=== PATIENT | female | born 1980 ===

== ENCOUNTER 2017-10-04 09:02 | Inpatient (IN) | payer OTHER ==
[2017-10-04 09:10] VITALS: BMI 28.9
--- NOTE | 2017-10-04 09:32 | C.PDOC ---
History Of Present Illness Patient is a 37 y/o female who presents to the ED with a complaint of left hand and forearm pain for the last 3 days. Patient notes the pain worsens at night and has been treating with heating pads and Icy Hot massages. Admits to owning a cat at home, but does not recall any injury to left hand. No other physical complaints at this time. Time Seen by Provider: 10/04/17 09:25 Chief Complaint (Nursing): Upper Extremity Problem/Injury History Per: Patient History/Exam Limitations: no limitations Onset/Duration Of Symptoms: Days (3) Current Symptoms Are (Timing): Still Present Quality: "Pain" Exacerbating Factor(s): Worse At Night Recent travel outside of the [place]: No Past Medical History Reviewed: Historical Data, Nursing Documentation, Vital Signs Vital Signs: Last Vital Signs Temp 98.4 F 10/04/17 15:39 Pulse 98 H 10/04/17 15:39 Resp 20 10/04/17 15:39 BP 121/69 10/04/17 15:39 Pulse Ox 100 10/04/17 15:39 - Medical History PMH: Anxiety, Asthma, Colonic Polyps, Gastritis, HTN, Hypercholesterolemia Denies: HIV, Chronic Kidney Disease Surgical History: Appendectomy, Tonsillectomy, (x 3) - [facility] Procedures CLOSED ENDOSCOPIC BIOPSY OF LARGE INTESTINE (05/30/14) ESOPHAGOGASTRODUODENOSCOPY [EGD] W/CLOSED BIOPSY (12/11/13) EXCISION OF RIGHT UPPER LEG SKIN, EXTERNAL APPROACH, DIAGN (09/12/15) INJECT/INFUSE NEC (01/26/15) LAPAROSCOP LYSIS-PERITONEAL ADHES (10/14/14) LAPAROTOMY NEC (03/08/13) NEBULIZER THERAPY (02/03/14) OTH LYSIS-PERITONEAL ADHES (03/08/13) RESECTION OF APPENDIX, PERCUTANEOUS ENDOSCOPIC APPROACH (07/08/16) Family History: States: No Known Family Hx - Social History Hx Tobacco Use: Yes (light smoker) Hx Alcohol Use: Yes Hx Substance Use: No - Immunization History Hx Tetanus Toxoid Vaccination: No Hx Influenza Vaccination: No Hx Pneumococcal Vaccination: No Review Of Systems Musculoskeletal: Positive for: Arm Pain (left forearm), Hand Pain (left hand ) Physical Exam - Physical Exam Appears: Well, Non-toxic, No Acute Distress Skin: Normal Color, Warm, Dry, Other (questionable lymphangetic spread to left forearm) Head: Atraumatic, Normacephalic Oral Mucosa: Moist Chest: Symmetrical Cardiovascular: Rhythm Regular, No Murmur Respiratory: Normal Breath Sounds, No Rales, No Rhonchi, No Wheezing Gastrointestinal/Abdominal: Soft, No Tenderness Extremity: Swelling (edema to distal left forearm and dorsum of left hand) Pulses: Left Radial: Normal, Right Radial: Normal Neurological/Psych: Oriented x3, Normal Speech, Normal Cognition, Normal Motor, Normal Sensation ED Course And Treatment - Laboratory Results Result Diagrams: 10/04/17 09:41 10/04/17 09:41 Lab Interpretation: Normal (ua neg, tox neg) ECG Rhythm: Sinus Rhythm Rate From EC (bpm) O2 Sat by Pulse Oximetry: 99 (room air) Pulse Ox Interpretation: Normal - Other Rad L hand, L forearm X-Ray: Interpreted by Me (no FB/gas) Progress Note: toradol, morphine 4 IV, morphine 6 iv, Doxycycline IV Reevaluation Time: 11:05 Reassessment Condition: Improved - Physician Consult Information Outcome Of Conversation: 1100: d/w Hospitalist- Dr. Mau Louis, ok to admit. 1200: pt's insurance status resolved, so d/w Dr. Allen Louis- [employer], ok to admit. Medical Decision Making Medical Decision Making: ? cat bite with lymphangitis as noted on dorsal forearm, though no wounds on L hand. and/or Worstening edema/swelling due to massage/heat therapies/Icy Hot applications overnight. EKG, blood work, left forearm XR, left hand XR ordered. Morphine and toradol administered. Disposition Doctor Will See Patient In The: Hospital Counseled Patient/Family Regarding: Studies Performed, Diagnosis - Disposition Disposition: HOSPITALIZED Disposition Time: 11:02 Condition: GOOD - Clinical Impression Clinical Impression: Pain and swelling of left upper extremity - Scribe Statement The provider has reviewed the documentation as recorded by the Scribe Vidya Fowler All medical record entries made by the Scribe were at my direction and personally dictated by me. I have reviewed the chart and agree that the record accurately reflects my personal performance of the history, physical exam, medical decision making, and the department course for this patient. I have also personally directed, reviewed, and agree with the discharge instructions and disposition.
[2017-10-04] MEDS ORDERED: Morphine 4 MG/ML VIAL ONE ×2 (09:46→10:32)
[2017-10-04 09:52] LABS: BASO # 0.1 K/uL (0.0-0.2); BASO % 0.8 % (0.0-2.0); EOS # 0.3 K/uL (0.0-0.7); EOS % 2.4 % (0.0-4.0); HEMOGLOBIN 15.2 g/dL (11.0-16.0); LYMPH # 2.9 K/uL (1.0-4.3); MEAN CELL VOLUME 87.4 fL (81.0-99.0); MEAN CORPUSCULAR HEMOGLOBIN 29.9 pg (27.0-31.0); MEAN CORPUSCULAR HGB CONC 34.2 g/dL (33.0-37.0); MEAN PLATELET VOLUME 8.3 fL (7.2-11.7); MONO # 0.7 K/uL (0.0-0.8); MONO % 6.2 % (0.0-10.0); NEUT # 6.7 K/uL (1.8-7.0); NEUT % 63.6 % (50.0-75.0); NRBC % 0.2 % (0.0-2.0); RBC 5.08 Mil/uL (3.80-5.20); RED CELL DISTRIBUTION WIDTH 13.6 % (11.5-14.5); WHITE BLOOD COUNT 10.6 K/uL (4.8-10.8)
[2017-10-04 10:06] LABS: ALB/GLOB RATIO 1.4 (1.0-2.1); ALBUMIN 4.6 g/dL (3.5-5.0); ALT/SGPT 29 U/L (9-52); AST/SGOT 29 U/L (14-36); BLOOD UREA NITROGEN 14 mg/dL (7-17); CALCIUM 9.1 mg/dl (8.6-10.4); GFR AFRICAN-AMERICAN > 60; GFR NON-AFRICAN AMERICAN > 60
[2017-10-04 10:16] LABS: SQUAMOUS EPITHIAL 7 /hpf (0-5); URINE BILIRUBIN NEGATIVE (NEGATIVE); URINE BLOOD NEGATIVE (NEGATIVE); URINE CLARITY Hazy (Clear); URINE COLOR Yellow (YELLOW); URINE GLUCOSE (UA) NORMAL (Normal); URINE LEUKOCYTE ESTERASE NEG Leu/uL (Negative); URINE PROTEIN NEGATIVE (NEGATIVE); URINE UROBILINOGEN NORMAL mg/dL (0.2-1.0)
[2017-10-04 10:41] LABS: BARBITURATES, UR NEGATIVE (NEGATIVE); BENZODIAZEPINES, UR NEGATIVE (NEGATIVE); OPIATES, UR NEGATIVE (NEGATIVE); PHENCYCLIDINE, UR NEGATIVE (NEGATIVE)
--- NOTE | 2017-10-04 11:36 | RAD ---
PROCEDURE: Left Hand Radiographs. HISTORY: L hand pain , ? cat bite to dosrum, ? FB/gas COMPARISON: None available. FINDINGS: BONES: Patient's ring obscures evaluation of the proximal 4th phalanx. No acute displaced fracture. JOINTS: No dislocation. SOFT TISSUES: Soft tissue swelling. No evidence of radiopaque foreign body. OTHER FINDINGS: None. IMPRESSION: Mild soft tissue swelling.
--- NOTE | 2017-10-04 11:37 | RAD ---
PROCEDURE: Radiographs of the left elbow. HISTORY: L hand/forearm pain/swelling, ? gas COMPARISON: None available. FINDINGS: BONES: No acute displaced fracture. JOINTS: No dislocation. SOFT TISSUES: Mild soft tissue swelling. No evidence of radiopaque foreign body. JOINT EFFUSION: No significant joint effusion. OTHER FINDINGS: None IMPRESSION: Mild soft tissue swelling.
[2017-10-04 15:40] VITALS: RESP 20
--- NOTE | 2017-10-04 17:39 | CP.PCM.HP ---
Past Patient History - Infectious Disease Hx of Infectious Diseases: None - Past Medical History & Family History Past Medical History?: Yes - Past Social History Smoking Status: Light Smoker < 10 Cigarettes Daily - CARDIAC Hx Hypercholesterolemia: Yes Hx Hypertension: Yes - PULMONARY Hx Asthma: Yes - NEUROLOGICAL Hx Neurological Disorder: No - HEENT Hx HEENT Problems: Yes Other/Comment: wears corrective lenses for reading - RENAL Hx Chronic Kidney Disease: No - ENDOCRINE/METABOLIC Hx Endocrine Disorders: No - HEMATOLOGICAL/ONCOLOGICAL Hx Human Immunodeficiency Virus (HIV): No - INTEGUMENTARY Hx Dermatological Problems: No - MUSCULOSKELETAL/RHEUMATOLOGICAL Hx Musculoskeletal Disorders: No Hx Falls: No - GASTROINTESTINAL Hx Gastritis: Yes - GENITOURINARY/GYNECOLOGICAL Hx Genitourinary Disorders: No - PSYCHIATRIC Hx Anxiety: Yes Hx Substance Use: No - SURGICAL HISTORY Hx Appendectomy: Yes Hx Tonsillectomy: Yes - ANESTHESIA Hx Anesthesia: Yes Hx Anesthesia Reactions: No Hx Malignant Hyperthermia: No Meds Allergies/Adverse Reactions: Allergies Allergy/AdvReac Type Severity Reaction Status Date / Time Penicillins Allergy Mild RASH Verified 10/04/17 09:09 iodine AdvReac Mild RASH Verified 10/04/17 09:09 Physical Exam - Constitutional Appears: Well - Head Exam Head Exam: ATRAUMATIC, NORMAL INSPECTION, NORMOCEPHALIC - Eye Exam Eye Exam: EOMI, Normal appearance, PERRL Pupil Exam: NORMAL ACCOMODATION, PERRL - ENT Exam ENT Exam: Mucous Membranes Moist, Normal Exam - Neck Exam Neck exam: Positive for: Normal Inspection - Respiratory Exam Respiratory Exam: Decreased Breath Sounds - Cardiovascular Exam Cardiovascular Exam: REGULAR RHYTHM, +S1, +S2 - GI/Abdominal Exam GI & Abdominal Exam: Diminished Bowel Sounds, Soft - Rectal Exam Rectal Exam: Deferred Results - Vital Signs Recent Vital Signs: Last Vital Signs Temp 98.4 F 10/04/17 15:39 Pulse 98 H 10/04/17 15:39 Resp 20 10/04/17 15:39 BP 121/69 10/04/17 15:39 Pulse Ox 99 10/04/17 16:13 - Labs Result Diagrams: 10/04/17 09:41 10/04/17 09:41 Labs: Laboratory Results - last 24 hr 10/04/17 10/04/17 10/04/17 09:33 09:33 09:41 WBC 10.6 RBC 5.08 Hgb 15.2 Hct 44.4 MCV 87.4 MCH 29.9 MCHC 34.2 RDW 13.6 Plt Count 294 MPV 8.3 Neut % (Auto) 63.6 Lymph % (Auto) 27.0 [place] % (Auto) 6.2 Eos % (Auto) 2.4 Baso % (Auto) 0.8 Neut # (Auto) 6.7 Lymph # (Auto) 2.9 [place] # (Auto) 0.7 Eos # (Auto) 0.3 Baso # (Auto) 0.1 Sodium Potassium Chloride Carbon Dioxide Anion Gap BUN Creatinine Est GFR ( Amer) Est GFR (Non-Af Amer) Random Glucose Calcium Total Bilirubin AST ALT Alkaline Phosphatase Total Protein Albumin Globulin Albumin/Globulin Ratio Urine Color Yellow Urine Clarity Hazy Urine pH 5.0 Ur Specific [place] 1.021 Urine Protein Negative Urine Glucose (UA) Normal Urine Ketones Negative Urine Blood Negative Urine Nitrate Negative Urine Bilirubin Negative Urine Urobilinogen Normal Ur Leukocyte Esterase Neg Urine WBC (Auto) 1 Urine RBC (Auto) 2 Ur Squamous Epith Cells 7 H Urine HCG, Qual Urine Opiates Screen Negative Urine Methadone Screen Negative Ur Barbiturates Screen Negative Ur Phencyclidine Scrn Negative Ur Amphetamines Screen Negative U Benzodiazepines Scrn Negative U Oth Cocaine Metabols Negative U Cannabinoids Screen Negative 10/04/17 10/04/17 09:41 13:30 WBC RBC Hgb Hct MCV MCH MCHC RDW Plt Count MPV Neut % (Auto) Lymph % (Auto) [place] % (Auto) Eos % (Auto) Baso % (Auto) Neut # (Auto) Lymph # (Auto) [place] # (Auto) Eos # (Auto) Baso # (Auto) Sodium 142 Potassium 4.8 Chloride 102 Carbon Dioxide 25 Anion Gap 20 BUN 14 Creatinine 1.0 Est GFR ( Amer) > 60 Est GFR (Non-Af Amer) > 60 Random Glucose 95 Calcium 9.1 Total Bilirubin 0.4 AST 29 ALT 29 Alkaline Phosphatase 86 Total Protein 8.0 Albumin 4.6 Globulin 3.3 Albumin/Globulin Ratio 1.4 Urine Color Urine Clarity Urine pH Ur Specific [place] Urine Protein Urine Glucose (UA) Urine Ketones Urine Blood Urine Nitrate Urine Bilirubin Urine Urobilinogen Ur Leukocyte Esterase Urine WBC (Auto) Urine RBC (Auto) Ur Squamous Epith Cells Urine HCG, Qual Negative Urine Opiates Screen Urine Methadone Screen Ur Barbiturates Screen Ur Phencyclidine Scrn Ur Amphetamines Screen U Benzodiazepines Scrn U Oth Cocaine Metabols U Cannabinoids Screen
[2017-10-04] MEDS: HYDROmorphone 1 mg/ml ISec IVP PRN ×2 (17:49→21:45)
[2017-10-04] MEDS: Ciprofloxacin 400mg/200ml D5W 400 MG/200 ML BAG IVPB SCH (17:55)
[2017-10-04] MEDS: Vancomycin 1 gm/NS 200 ml 1 GM/200 ML BAG IVPB SCH (23:34)
[2017-10-05] MEDS: Ciprofloxacin 400mg/200ml D5W 400 MG/200 ML BAG IVPB SCH ×2 (05:20→18:27)
[2017-10-05] MEDS: Vancomycin 1 gm/NS 200 ml 1 GM/200 ML BAG IVPB SCH ×2 (10:05→21:46)
[2017-10-05] MEDS: Enoxaparin 40 mg Syringe SC SCH ×2 (10:12→10:19)
[2017-10-05] MEDS: Pantoprazole 40 mg EC Tab PO SCH (10:12)
--- NOTE | 2017-10-05 15:31 | CP.PCM.CON ---
History of Present Illness - History of Present Illness History of Present Illness: 37 y/o female who presents to the ED with a complaint of left hand and forearm pain for the last 3 days. Patient notes the pain worsens at night and has been treating with heating pads and Icy Hot massages. Admits to owning a cat at home , but does not recall any injury to left hand. No other physical complaints at this time. right hand and forearm swelling ++ IV rx ordered pending cultures and drainage - Medical History PMH: Anxiety, Asthma, Colonic Polyps, Gastritis, HTN, Hypercholesterolemia Denies: HIV, Chronic Kidney Disease Surgical History: Appendectomy, Tonsillectomy, (x 3) - [facility] Procedures CLOSED ENDOSCOPIC BIOPSY OF LARGE INTESTINE (05/30/14) ESOPHAGOGASTRODUODENOSCOPY [EGD] W/CLOSED BIOPSY (12/11/13) EXCISION OF RIGHT UPPER LEG SKIN, EXTERNAL APPROACH, DIAGN (09/12/15) INJECT/INFUSE NEC (01/26/15) LAPAROSCOP LYSIS-PERITONEAL ADHES (10/14/14) LAPAROTOMY NEC (03/08/13) NEBULIZER THERAPY (02/03/14) OTH LYSIS-PERITONEAL ADHES (03/08/13) RESECTION OF APPENDIX, PERCUTANEOUS ENDOSCOPIC APPROACH (07/08/16) Review of Systems - Constitutional Constitutional: As Per HPI - EENT Eyes: absent: As Per HPI, Blind Spots, Blurred Vision, Change in Vision, Decreased Night Vision, Diplopia, Discharge, Dry Eye, Exophthalmos, Floaters, Irritation, Itchy Eyes, Loss of Peripheral Vision, Pain, Photophobia, Requires Corrective Lenses, Sees Flashes, Spots in Vision, Tunnel Vision, Other Visual Disturbances, Loss of Vision, Other Ears: absent: As Per HPI, Decreased Hearing, Ear Discharge, Ear Pain, Tinnitus, Abnormal Hearing, Disequilibrium, Dizziness, Other Nose/Mouth/Throat: absent: As Per HPI, Epistaxis, Nasal Congestion, Nasal Discharge, Nasal Obstruction, Nasal Trauma, Nose Pain, Post Nasal Drip, Sinus Pain, Sinus Pressure, Bleeding Gums, Change in Voice, Dental Pain, Dry Mouth, Dysphagia, Halitosis, Hoarsness, Lip Swelling, Mouth Lesions, Mouth Pain, Odynophagia, Sore Throat, Throat Swelling, Tongue Swelling, Facial Pain, Neck Pain, Neck Mass, Other - Breasts Breasts: absent: As Per HPI, Change in Shape, Mass, Pain, Nipple Discharge, Nipple Inversion, Skin Changes, Swelling, Other - Cardiovascular Cardiovascular: absent: As Per HPI, Acrocyanosis, Chest Pain, Chest Pain at Rest , Chest Pain with Activity, Claudication, Diaphoresis, Dyspnea, Dyspnea on Exertion, Edema, Irregular Heart Rhythm, Pain Radiating to Arm/Neck/Jaw, Leg Edema, Leg Ulcers, Lightheadedness, Orthopnea, Palpitations, Paroxysmal Nocturnal Dyspnea, Pedal Edema, Radiating Pain, Rapid Heart Rate, Slow Heart Rate, Syncope, Other - Respiratory Respiratory: absent: As Per HPI, Cough, Dyspnea, Hemoptysis, Dyspnea on Exertion , Wheezing, Snoring, Stridor, Pain on Inspiration, Chest Congestion, Excessive Mucous Production, Change in Mucous Color, Pain with Coughing, Other - Gastrointestinal Gastrointestinal: absent: As Per HPI, Abdominal Pain, Belching, Bloating, Change in Bowel Habits, Change in Stool Character, Coffee Ground Emesis, Constipation, Cramping, Diarrhea, Dyspepsia, Dysphagia, Early Satiety, Excessive Flatus, Fecal Incontinence, Heartburn, Hematemesis, Hematochezia, Loose Stools, Melena, Nausea, Odynophagia, Temesmus, Vomiting, Other - Genitourinary Genitourinary: absent: As Per HPI, Change in Urinary Stream, Difficulty Urinating, Dysuria, Flank Pain, Hematuria, Pyuria, Nocturia, Urinary Incontinence, Urinary Frequency, Urinary Hesitance, Urinary Urgency, Voiding Freq/Small Amts, Freq UTI, Hx Renal/Bladder Calculi, Hx /Renal Surgery, Bladder Distension, Other - Reproductive: Female Reproductive:Female: absent: As Per HPI, Amenorrhea, Amenorrhea/ Control, Currently Menstual, Cycle <21 Days, Cycle >35 Days, Cycle Variable, Menses 1-7 Days, Menses >/= 8 Days, Menses Variable, Cycle > 4 Weeks Between, No Menses for 6 Months, Heavy Menses, Light Menses, Normal Menses, Spotting Between Cycles , S/P Hysterectomy, Menopausal, Post Menopausal, Premenarche, Abnormal Vaginal Bleeding, Dysmenorrhea, Dyspareunia, Genital Lesions, Genital Pruritis, Pelvic Pain, Prolapse Symptoms, Sexual Dysfunction, Vaginal Discharge, Vaginal Dryness , Vaginal Odor, Vaginal Pruritis, Other - Menstruation Menstruation: absent: As Per HPI, Amenorrhea, Amenorrhea/ Control, Currently Menstual, Cycle <21 Days, Cycle >35 Days, Cycle Variable, Menses 1-7 Days, Menses >/= 8 Days, Menses Variable, Cycle > 4 Weeks Between, No Menses for 6 Months, Heavy Menses, Light Menses, Normal Menses, Spotting Between Cycles , S/P Hysterectomy, Menopausal, Post Menopausal, Premenarche, Abnormal Vaginal Bleeding, Dysmenorrhea, Other - Musculoskeletal Musculoskeletal: As Per HPI - Integumentary Integumentary: As Per HPI - Neurological Neurological: absent: As Per HPI, Abnormal Gait, Abnormal Hearing, Abnormal Movements, Abnormal Speech, Behavioral Changes, Burning Sensations, Confusion, Convulsions, Disequilibrium, Dizziness, Numbness, Focal Weakness, Frequent Falls , Headaches, Lack of Coordination, Loss of Vision, Memory Loss, Paresthesias, Radicular Pain, Restless Legs, Sensory Deficit, Syncope, Tingling, Tremor, Vertigo, Weakness, Other Visual Disturbances, Other - Psychiatric Psychiatric: absent: As Per HPI, Abnormal Sleep Pattern, Anhedonia, Anxiety, Auditory Hallucinations, Behavioral Changes, Change in Appetite, Change in Libido, Confusion, Depression, Difficulty Concentrating, Hallucinations, Homicidal Ideation, Hopelessness, Irritability, Memory Loss, Mood Swings, Panic Attacks, Paranoia, Suicidal Ideation, Visual Hallucinations, Tactile Hallucinations, Other - Endocrine Endocrine: absent: As Per HPI, Change in Body Appearance, Change in Libido, Cold Intolorance, Deepening of Voice, Excessive Sweating, Fatigue, Flushing, Heat Intolorance, Increase in Ring/Shoe/Hat Size, Palpitations, Polydipsia, Polyphagia, Polyuria, Other - Hematologic/Lymphatic Hematologic: absent: As Per HPI, Easy Bleeding, Easy Bruising, Lymphadenopathy, Other Past Patient History - Infectious Disease Hx of Infectious Diseases: None - Past Medical History & Family History Past Medical History?: Yes - Past Social History Smoking Status: Light Smoker < 10 Cigarettes Daily - CARDIAC Hx Hypercholesterolemia: Yes Hx Hypertension: Yes - PULMONARY Hx Asthma: Yes - NEUROLOGICAL Hx Neurological Disorder: No - HEENT Hx HEENT Problems: Yes Other/Comment: wears corrective lenses for reading - RENAL Hx Chronic Kidney Disease: No - ENDOCRINE/METABOLIC Hx Endocrine Disorders: No - HEMATOLOGICAL/ONCOLOGICAL Hx Human Immunodeficiency Virus (HIV): No - INTEGUMENTARY Hx Dermatological Problems: No - MUSCULOSKELETAL/RHEUMATOLOGICAL Hx Musculoskeletal Disorders: No Hx Falls: No - GASTROINTESTINAL Hx Gastritis: Yes - GENITOURINARY/GYNECOLOGICAL Hx Genitourinary Disorders: No - PSYCHIATRIC Hx Anxiety: Yes Hx Substance Use: No - SURGICAL HISTORY Hx Appendectomy: Yes Hx Tonsillectomy: Yes - ANESTHESIA Hx Anesthesia: Yes Hx Anesthesia Reactions: No Hx Malignant Hyperthermia: No Meds Allergies/Adverse Reactions: Allergies Allergy/AdvReac Type Severity Reaction Status Date / Time Penicillins Allergy Mild RASH Verified 10/04/17 09:09 iodine AdvReac Mild RASH Verified 10/04/17 09:09 - Medications Medications: Current Medications Acetaminophen (Tylenol 325mg Tab) 650 mg PO Q6 PRN PRN Reason: Pain, Mild (1-3) Alprazolam (Xanax) 0.25 mg PO BID PRN PRN Reason: Anxiety Stop: 10/12/17 11:27 Last Admin: 10/05/17 11:38 Dose: 0.25 mg Enoxaparin Sodium (Lovenox) 40 mg SC DAILY [facility] Last Admin: 10/05/17 10:19 Dose: Not Given Hydromorphone HCl (Dilaudid) 2 mg IVP Q4H PRN PRN Reason: Pain, severe (8-10) Last Admin: 10/05/17 13:25 Dose: 2 mg Ciprofloxacin (Cipro 400mg/200ml Dsw) 400 mg in 200 mls @ 133 mls/hr IVPB Q12H DYLLAN PRN Reason: Protocol Last Admin: 10/05/17 05:20 Dose: 133 mls/hr Vancomycin/Sodium Chloride (Vancomycin 1 Gm/Ns 200 Ml) 1 gm in 200 mls @ 166.7 mls/hr IVPB Q12 DYLLAN PRN Reason: Protocol Stop: 10/09/17 22:01 Last Admin: 10/05/17 10:05 Dose: 166.7 mls/hr Ketorolac Tromethamine (Toradol) 30 mg IVP Q6 PRN PRN Reason: Pain, severe (8-10) Last Admin: 10/04/17 15:24 Dose: 30 mg Ketorolac Tromethamine (Toradol) 15 mg IVP Q6 PRN PRN Reason: Pain, moderate (4-7) Pantoprazole Sodium (Protonix Ec Tab) 40 mg PO DAILY [facility] Last Admin: 10/05/17 10:12 Dose: 40 mg Physical Exam - Constitutional Appears: Non-toxic, Chronically Ill - Head Exam Head Exam: NORMOCEPHALIC - Eye Exam Eye Exam: PERRL. absent: Scleral icterus - ENT Exam ENT Exam: Mucous Membranes Dry - Neck Exam Neck exam: Negative for: Lymphadenopathy - Respiratory Exam Respiratory Exam: Decreased Breath Sounds - Cardiovascular Exam Cardiovascular Exam: REGULAR RHYTHM - GI/Abdominal Exam GI & Abdominal Exam: Diminished Bowel Sounds, Soft. absent: Tenderness - Rectal Exam Rectal Exam: Deferred - Extremities Exam Extremities exam: Positive for: pedal pulses present. Negative for: calf tenderness, normal inspection, pedal edema, tenderness Additional comments: swelling tender left hand and forearm - Back Exam Back exam: absent: CVA tenderness (L), CVA tenderness (R) - Neurological Exam Neurological exam: Alert, CN II-XII Intact, Oriented x3, Reflexes Normal - Psychiatric Exam Psychiatric exam: Normal Mood - Skin Skin Exam: Dry Results - Vital Signs Recent Vital Signs: Last Vital Signs Temp 98.1 F 10/05/17 07:30 Pulse 77 10/05/17 07:30 Resp 20 10/05/17 07:30 BP 120/73 10/05/17 07:30 Pulse Ox 96 10/05/17 11:45 - Labs Result Diagrams: 10/04/17 09:41 10/04/17 09:41 Assessment & Plan (1) Cellulitis of hand, left Status: Acute (2) Cellulitis of hand, left Status: Acute (3) Pain and swelling of left upper extremity Status: Acute - Assessment and Plan (Free Text) Assessment: cont vanco/cipro pending cultures consider surgical drainage
--- NOTE | 2017-10-05 16:03 | CP.PCM.PN ---
Subjective - Date & Time of Evaluation Date of Evaluation: 10/05/17 Time of Evaluation: 08:10 - Subjective Subjective: clinically same Objective - Vital Signs/Intake and Output Vital Signs (last 24 hours): Temp Pulse Resp BP Pulse Ox 98.7 F 78 20 116/68 99 10/05/17 15:54 10/05/17 15:54 10/05/17 15:54 10/05/17 15:54 10/05/17 15:54 Intake and Output: 10/05/17 10/05/17 06:59 18:59 Intake Total 560 Output Total Balance 560 - Medications Medications: Current Medications Acetaminophen (Tylenol 325mg Tab) 650 mg PO Q6 PRN PRN Reason: Pain, Mild (1-3) Alprazolam (Xanax) 0.25 mg PO BID PRN PRN Reason: Anxiety Stop: 10/12/17 11:27 Last Admin: 10/05/17 11:38 Dose: 0.25 mg Enoxaparin Sodium (Lovenox) 40 mg SC DAILY [facility] Last Admin: 10/05/17 10:19 Dose: Not Given Hydromorphone HCl (Dilaudid) 2 mg IVP Q4H PRN PRN Reason: Pain, severe (8-10) Last Admin: 10/05/17 13:25 Dose: 2 mg Ciprofloxacin (Cipro 400mg/200ml Dsw) 400 mg in 200 mls @ 133 mls/hr IVPB Q12H DYLLAN PRN Reason: Protocol Last Admin: 10/05/17 05:20 Dose: 133 mls/hr Vancomycin/Sodium Chloride (Vancomycin 1 Gm/Ns 200 Ml) 1 gm in 200 mls @ 166.7 mls/hr IVPB Q12 DYLLAN PRN Reason: Protocol Stop: 10/09/17 22:01 Last Admin: 10/05/17 10:05 Dose: 166.7 mls/hr Ketorolac Tromethamine (Toradol) 30 mg IVP Q6 PRN PRN Reason: Pain, severe (8-10) Last Admin: 10/04/17 15:24 Dose: 30 mg Ketorolac Tromethamine (Toradol) 15 mg IVP Q6 PRN PRN Reason: Pain, moderate (4-7) Pantoprazole Sodium (Protonix Ec Tab) 40 mg PO DAILY [facility] Last Admin: 10/05/17 10:12 Dose: 40 mg - Labs Labs: 10/04/17 09:41 10/04/17 09:41 - Constitutional Appears: Well - Head Exam Head Exam: ATRAUMATIC, NORMAL INSPECTION, NORMOCEPHALIC - Eye Exam Eye Exam: EOMI, Normal appearance, PERRL Pupil Exam: NORMAL ACCOMODATION, PERRL - ENT Exam ENT Exam: Mucous Membranes Moist, Normal Exam - Neck Exam Neck Exam: Full ROM, Normal Inspection. absent: Lymphadenopathy - Respiratory Exam Respiratory Exam: Decreased Breath Sounds - Cardiovascular Exam Cardiovascular Exam: REGULAR RHYTHM, +S1, +S2 - GI/Abdominal Exam GI & Abdominal Exam: Soft, Hyperactive Bowel Sounds - Rectal Exam Rectal Exam: Deferred
--- NOTE | 2017-10-05 16:04 | CP.PCM.CON ---
<Mckayla Mathur - Last Filed: 10/05/17 19:19> History of Present Illness - History of Present Illness History of Present Illness: General surgery consult note for Dr. Calzada-Mckayla Mathur, PGY-1 Pt S & E at bedside. 37F w/PMH sig for anxiety, hx DVT consulted for Left upper extremity swelling & pain x 3 days. Pain is "throbbing, burning, pressure" constant, severe. Pt reports that pain started in dorsum of hand. Daughter massaged the hand without relief. Pain continued, worsened. Not alleviated by Tylenol or Advil. Pt reports awakening at 2am on night prior to admission with severe pain from shoulder with radiation down to hand. Admits to NAM, dizziness, chills, chest tightness, decreased motor function of left hand, left hand/LUE numbness and tingling. Denies fevers, N & V, changes to bowel or bladder habits, other complaints, recent travel or exposures to new substances/lotions/animals/ detergents, recent trauma. Admits to having one declawed cat. 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 absent: Fever - EENT Eyes: absent: Change in Vision Ears: Dizziness Nose/Mouth/Throat: absent: Sore Throat - Cardiovascular Cardiovascular: absent: Palpitations - Respiratory Respiratory: absent: Cough - Gastrointestinal Gastrointestinal: absent: Abdominal Pain, Constipation, Diarrhea, Nausea, Vomiting - Genitourinary Genitourinary: absent: Change in Urinary Stream, Dysuria - Musculoskeletal Musculoskeletal: Muscle Weakness, Neck Pain (chronic), Numbness, Stiffness, Tingling (LUE) - Integumentary Integumentary: Skin Pain (LUE), Swelling (LUE). absent: Rash, Wounds - Neurological Neurological: Numbness (LUE), Sensory Deficit (LUE), Tingling (LUE), Weakness ( LUE) - Psychiatric Psychiatric: Anxiety (chronic) Past Patient History - Infectious Disease Hx of Infectious Diseases: None - Past Medical History & Family History Past Medical History?: Yes - Past Social History Smoking Status: Light Smoker < 10 Cigarettes Daily - CARDIAC Hx Hypercholesterolemia: Yes Hx Hypertension: Yes - PULMONARY Hx Asthma: Yes - NEUROLOGICAL Hx Neurological Disorder: No - HEENT Hx HEENT Problems: Yes Other/Comment: wears corrective lenses for reading - RENAL Hx Chronic Kidney Disease: No - ENDOCRINE/METABOLIC Hx Endocrine Disorders: No - HEMATOLOGICAL/ONCOLOGICAL Hx Human Immunodeficiency Virus (HIV): No - INTEGUMENTARY Hx Dermatological Problems: No - MUSCULOSKELETAL/RHEUMATOLOGICAL Hx Musculoskeletal Disorders: No Hx Falls: No - GASTROINTESTINAL Hx Gastritis: Yes - GENITOURINARY/GYNECOLOGICAL Hx Genitourinary Disorders: No - PSYCHIATRIC Hx Anxiety: Yes Hx Substance Use: No - SURGICAL HISTORY Hx Appendectomy: Yes Hx Tonsillectomy: Yes - ANESTHESIA Hx Anesthesia: Yes Hx Anesthesia Reactions: No Hx Malignant Hyperthermia: No Meds Allergies/Adverse Reactions: Allergies Allergy/AdvReac Type Severity Reaction Status Date / Time Penicillins Allergy Mild RASH Verified 10/04/17 09:09 iodine AdvReac Mild RASH Verified 10/04/17 09:09 - Medications Medications: Current Medications Acetaminophen (Tylenol 325mg Tab) 650 mg PO Q6 PRN PRN Reason: Pain, Mild (1-3) Alprazolam (Xanax) 0.25 mg PO BID PRN PRN Reason: Anxiety Stop: 10/12/17 11:27 Last Admin: 10/05/17 11:38 Dose: 0.25 mg Enoxaparin Sodium (Lovenox) [address] [facility] Last Admin: 10/05/17 10:19 Dose: Not Given Hydromorphone HCl (Dilaudid) 2 mg IVP Q4H PRN PRN Reason: Pain, severe (8-10) Last Admin: 10/05/17 13:25 Dose: 2 mg Ciprofloxacin (Cipro 400mg/200ml Dsw) 400 mg in 200 mls @ 133 mls/hr IVPB Q12H [facility] PRN Reason: Protocol Last Admin: 10/05/17 05:20 Dose: 133 mls/hr Vancomycin/Sodium Chloride (Vancomycin 1 Gm/Ns 200 Ml) 1 gm in 200 mls @ 166.7 mls/hr IVPB Q12 [facility] PRN Reason: Protocol Stop: 10/09/17 22:01 Last Admin: 10/05/17 10:05 Dose: 166.7 mls/hr Ketorolac Tromethamine (Toradol) 30 mg IVP Q6 PRN PRN Reason: Pain, severe (8-10) Last Admin: 10/04/17 15:24 Dose: 30 mg Ketorolac Tromethamine (Toradol) 15 mg IVP Q6 PRN PRN Reason: Pain, moderate (4-7) Pantoprazole Sodium (Protonix Ec Tab) 40 mg PO DAILY [facility] Last Admin: 10/05/17 10:12 Dose: 40 mg Physical Exam - Constitutional Appears: Non-toxic, No Acute Distress - Head Exam Head Exam: ATRAUMATIC, NORMAL INSPECTION, NORMOCEPHALIC - Eye Exam Eye Exam: EOMI, Normal appearance - ENT Exam ENT Exam: Mucous Membranes Moist, Normal Exam - Neck Exam Neck exam: Positive for: Full Rom, Normal Inspection - Respiratory Exam Respiratory Exam: NORMAL BREATHING PATTERN - Cardiovascular Exam Cardiovascular Exam: REGULAR RHYTHM, +S1, +S2 - GI/Abdominal Exam GI & Abdominal Exam: Soft. absent: Distended, Firm, Guarding, Tenderness - Extremities Exam Extremities exam: Positive for: tenderness (LUE). Negative for: full ROM (LUE) , normal inspection Additional comments: left hand unable to squeeze fingers Left fingers unable to do full ROM Marked swelling of left hand, fingers, forearm No obvious demarcation, some slight discoloration of hand/forearm - Neurological Exam Neurological exam: Alert, CN II-XII Intact, Oriented x3 - Psychiatric Exam Psychiatric exam: Normal Affect, Normal Mood - Skin Skin Exam: Dry, Intact, Normal Color, Warm Additional comments: no visible wounds over left hand/fingers/arm Results - Vital Signs Recent Vital Signs: Last Vital Signs Temp 98.7 F 10/05/17 15:54 Pulse 78 10/05/17 15:54 Resp 20 10/05/17 15:54 BP 116/68 10/05/17 15:54 Pulse Ox 99 10/05/17 15:54 - Labs Result Diagrams: 10/04/17 09:41 10/04/17 09:41 Assessment & Plan - Assessment and Plan (Free Text) Assessment: 37F w/[place] swelling/pain Plan: Cont pain mgmt Cont IV abx as per ID Further recs pending CT of [place] PINTO attending Kareen, PGY-1 - Date & Time Date: 10/05/17 Time: 16:12 <Chu Calzada - Last Filed: 10/08/17 21:27> Meds - Medications Medications: Current Medications Acetaminophen (Tylenol 325mg Tab) 650 mg PO Q6 PRN PRN Reason: Pain, Mild (1-3) Last Admin: 10/07/17 18:42 Dose: 650 mg Alprazolam (Xanax) 0.25 mg PO BID PRN PRN Reason: Anxiety Stop: 10/12/17 11:27 Last Admin: 10/08/17 16:43 Dose: 0.25 mg Diphenhydramine HCl (Benadryl) 25 mg PO Q6 PRN PRN Reason: Allergy symptoms Enoxaparin Sodium (Lovenox) [address] [facility] Last Admin: 10/08/17 09:31 Dose: Not Given Hydromorphone HCl (Dilaudid) 1 mg IVP Q4H PRN PRN Reason: Pain, severe (8-10) Last Admin: 10/08/17 18:41 Dose: 1 mg Vancomycin/Sodium Chloride (Vancomycin 1 Gm/Ns 200 Ml) 1 gm in 200 mls @ 166.7 mls/hr IVPB Q12 [facility] PRN Reason: Protocol Stop: 10/09/17 22:01 Last Admin: 10/08/17 20:59 Dose: 166.7 mls/hr Ondansetron HCl (Zofran Inj) 4 mg IVP Q8H PRN PRN Reason: Nausea/Vomiting Last Admin: 10/08/17 07:46 Dose: 4 mg Pantoprazole Sodium (Protonix Ec Tab) [address] [facility] Last Admin: 10/08/17 09:30 Dose: 40 mg Valacyclovir HCl (Valtrex) 1,000 mg PO TID [facility] PRN Reason: Protocol Stop: 10/15/17 14:01 Last Admin: 10/08/17 17:31 Dose: Not Given Results - Vital Signs Recent Vital Signs: Last Vital Signs Temp 99.5 F 10/08/17 15:15 Pulse 95 H 10/08/17 15:15 Resp 20 10/08/17 15:15 BP 111/67 10/08/17 15:15 Pulse Ox 97 10/08/17 15:15 - Labs Result Diagrams: 10/08/17 07:22 10/08/17 07:22 Labs: Laboratory Results - last 24 hr 10/08/17 10/08/17 10/08/17 07:22 07:22 12:56 WBC 4.8 RBC 4.37 Hgb 13.2 Hct 38.4 MCV 87.7 MCH 30.2 MCHC 34.4 RDW 13.1 Plt Count 264 MPV 8.6 Neut % (Auto) 58.1 Lymph % (Auto) 29.9 [place] % (Auto) 8.2 Eos % (Auto) 3.4 Baso % (Auto) 0.4 Neut # (Auto) 2.8 Lymph # (Auto) 1.4 [place] # (Auto) 0.4 Eos # (Auto) 0.2 Baso # (Auto) 0.0 Sodium 139 Potassium 4.0 Chloride 102 Carbon Dioxide 24 Anion Gap 18 BUN 10 Creatinine 0.8 Est GFR ( Amer) > 60 Est GFR (Non-Af Amer) > 60 Random Glucose 109 H Calcium 8.7 Total Bilirubin 0.4 AST 243 H D ALT 305 H D Alkaline Phosphatase 145 H D Total Protein 6.8 Albumin 3.7 Globulin 3.2 Albumin/Globulin Ratio 1.2 Hepatitis A IgM Ab Negative Hep Bs Antigen Negative Hep B Core IgM Ab Negative Hepatitis C Antibody Negative Attending/Attestation - Attestation I have personally seen and examined this patient.: Yes I have fully participated in the care of the patient.: Yes I have reviewed all pertinent clinical information: Yes Notes (Text): Pt was seen and examined at bedside Agree with above note and assessment Pt with Left hand pain and Tenderness Left Upper extremity: Severe tenderness, Cellulitis present, No drainable abscess Labs and radiology reviewed Ass: Left hand abscess Plan: Conservative management at present ID consult Hand elevation IV antibiotics c.w current mx Plan d.w pt and PMD in detail Risk and benefit explained in detail.
[2017-10-05] MEDS ORDERED: Iodixanol 320 MG/ML 100 ML BOTTLE IV ONE (17:46)
--- NOTE | 2017-10-05 22:09 | CT ---
EXAM: CT Left Upper Extremity Without Intravenous Contrast EXAM DATE/TIME: 10/05/2017 2:46 PM CLINICAL HISTORY: 37 years old, female; Signs and symptoms; Swelling; Hand; Left; Additional info: Swelling l hand. Pain originally started in the forearm. ADDITIONAL HISTORY: Possible cat bite to dorsum of the hand TECHNIQUE: Axial computed tomography images of the left upper extremity without intravenous contrast. All CT scans at this facility use one or more dose reduction techniques, viz.: automated exposure control; ma/kV adjustment per patient size (including targeted exams where dose is matched to indication; i.e. head); or iterative reconstruction technique. Coronal and sagittal reformatted images were created and reviewed. COMPARISON: There are no prior studies for comparison. FINDINGS: Bones/joints: There are no fractures or dislocations. Soft tissues: There is superficial soft tissue swelling in the dorsal soft tissues of the left hand. There is minimal deep soft tissue swelling. There is less extensive volar soft tissue swelling. No radiopaque foreign bodies are identified. There is no soft tissue air.. No definite soft tissue swelling is seen in the forearm. IMPRESSION: Soft tissue swelling greatest in the dorsal soft tissues of the hand, no soft tissue air or radiopaque foreign body
[2017-10-06] MEDS: Ciprofloxacin 400mg/200ml D5W 400 MG/200 ML BAG IVPB SCH ×2 (05:51→17:11)
[2017-10-06 07:38] LABS: HEPATITIS B SURFACE AG Negative (NEGATIVE)
[2017-10-06 07:44] LABS: HEPATITIS A IGM NEGATIVE (NEGATIVE); HEPATITIS B CORE AB NEGATIVE (NEGATIVE)
--- NOTE | 2017-10-06 07:46 | CP.PCM.PN ---
<TaMohamud - Last Filed: 10/06/17 19:48> Subjective - Date & Time of Evaluation Date of Evaluation: 10/06/17 Time of Evaluation: 07:10 - Subjective Subjective: Surgery Progress note. Dr. Calzada Pt seen and examined at bedside. No acute events overnight. Left hand swelling and redness with slight improvement. No F/C. No new complaints. Objective - Vital Signs/Intake and Output Vital Signs (last 24 hours): Temp Pulse Resp BP Pulse Ox 98.2 F 72 20 108/69 96 10/06/17 07:25 10/06/17 07:25 10/06/17 07:25 10/06/17 07:25 10/06/17 07:25 Intake and Output: 10/06/17 10/06/17 06:59 18:59 Intake Total 800 Balance 800 - Medications Medications: Current Medications Acetaminophen (Tylenol 325mg Tab) 650 mg PO Q6 PRN PRN Reason: Pain, Mild (1-3) Alprazolam (Xanax) 0.25 mg PO BID PRN PRN Reason: Anxiety Stop: 10/12/17 11:27 Last Admin: 10/05/17 21:34 Dose: 0.25 mg Enoxaparin Sodium (Lovenox) 40 mg SC DAILY [facility] Last Admin: 10/05/17 10:19 Dose: Not Given Hydromorphone HCl (Dilaudid) 2 mg IVP Q4H PRN PRN Reason: Pain, severe (8-10) Last Admin: 10/06/17 05:53 Dose: 2 mg Ciprofloxacin (Cipro 400mg/200ml Dsw) 400 mg in 200 mls @ 133 mls/hr IVPB Q12H [facility] PRN Reason: Protocol Last Admin: 10/06/17 05:51 Dose: 133 mls/hr Vancomycin/Sodium Chloride (Vancomycin 1 Gm/Ns 200 Ml) 1 gm in 200 mls @ 166.7 mls/hr IVPB Q12 [facility] PRN Reason: Protocol Stop: 10/09/17 22:01 Last Admin: 10/05/17 21:46 Dose: 166.7 mls/hr Ketorolac Tromethamine (Toradol) 30 mg IVP Q6 PRN PRN Reason: Pain, severe (8-10) Last Admin: 10/04/17 15:24 Dose: 30 mg Ketorolac Tromethamine (Toradol) 15 mg IVP Q6 PRN PRN Reason: Pain, moderate (4-7) Pantoprazole Sodium (Protonix Ec Tab) 40 mg PO DAILY [facility] Last Admin: 10/05/17 10:12 Dose: 40 mg - Labs Labs: 10/04/17 09:41 10/04/17 09:41 - Constitutional Appears: Non-toxic, No Acute Distress - Head Exam Head Exam: ATRAUMATIC, NORMAL INSPECTION, NORMOCEPHALIC - Eye Exam Eye Exam: EOMI, Normal appearance. absent: Scleral icterus - ENT Exam ENT Exam: Mucous Membranes Moist - Respiratory Exam Respiratory Exam: NORMAL BREATHING PATTERN. absent: Accessory Muscle Use, Wheezes - Cardiovascular Exam Cardiovascular Exam: RRR. absent: JVD - GI/Abdominal Exam GI & Abdominal Exam: Soft. absent: Distended, Guarding, Rigid, Tenderness - Extremities Exam Additional comments: left dorsum of hand swelling and erythema extending up to the wrist. Pulses intact - Neurological Exam Neurological Exam: Alert, Awake, Oriented x3 - Psychiatric Exam Psychiatric exam: Normal Affect, Normal Mood - Skin Skin Exam: Dry, Erythema, Intact, Warm Assessment and Plan - Assessment and Plan (Free Text) Assessment: 37yo F with Left hand cellulitis Plan: - Recommend evaluation by hand specialist - continue IV Abx - Pain management Further recs as per Dr. Zheng Chappell PGY1 surgery pager: [phone] <Chu Calzada - Last Filed: 10/08/17 21:28> Objective - Vital Signs/Intake and Output Vital Signs (last 24 hours): Temp Pulse Resp BP Pulse Ox 99.5 F 95 H 20 111/67 97 10/08/17 15:15 10/08/17 15:15 10/08/17 15:15 10/08/17 15:15 10/08/17 15:15 Intake and Output: 10/08/17 10/09/17 18:59 06:59 Intake Total 1120 Balance 1120 - Medications Medications: Current Medications Acetaminophen (Tylenol 325mg Tab) 650 mg PO Q6 PRN PRN Reason: Pain, Mild (1-3) Last Admin: 10/07/17 18:42 Dose: 650 mg Alprazolam (Xanax) 0.25 mg PO BID PRN PRN Reason: Anxiety Stop: 10/12/17 11:27 Last Admin: 10/08/17 16:43 Dose: 0.25 mg Diphenhydramine HCl (Benadryl) 25 mg PO Q6 PRN PRN Reason: Allergy symptoms Enoxaparin Sodium (Lovenox) 40 mg SC DAILY [facility] Last Admin: 10/08/17 09:31 Dose: Not Given Hydromorphone HCl (Dilaudid) 1 mg IVP Q4H PRN PRN Reason: Pain, severe (8-10) Last Admin: 10/08/17 18:41 Dose: 1 mg Vancomycin/Sodium Chloride (Vancomycin 1 Gm/Ns 200 Ml) 1 gm in 200 mls @ 166.7 mls/hr IVPB Q12 [facility] PRN Reason: Protocol Stop: 10/09/17 22:01 Last Admin: 10/08/17 20:59 Dose: 166.7 mls/hr Ondansetron HCl (Zofran Inj) 4 mg IVP Q8H PRN PRN Reason: Nausea/Vomiting Last Admin: 10/08/17 07:46 Dose: 4 mg Pantoprazole Sodium (Protonix Ec Tab) 40 mg PO DAILY [facility] Last Admin: 10/08/17 09:30 Dose: 40 mg Valacyclovir HCl (Valtrex) 1,000 mg PO TID [facility] PRN Reason: Protocol Stop: 10/15/17 14:01 Last Admin: 10/08/17 17:31 Dose: Not Given - Labs Labs: 10/08/17 07:22 10/08/17 07:22 Attending/Attestation - Attestation I have personally seen and examined this patient.: Yes I have fully participated in the care of the patient.: Yes I have reviewed all pertinent clinical information, including history, physical exam and plan: Yes Notes (Text): Pt was seen and examined at bedside Agree with above note and assessment Pt with Left hand pain and Tenderness Cellulitis improving, No drainable abscess Hand surgery consult by ID consult Hand elevation IV antibiotics c.w current mx Plan d.w pt and PMD in detail Risk and benefit explained in detail.
[2017-10-06 07:56] LABS: HEPATITIS C ANTIBODY NEGATIVE (NEGATIVE)
[2017-10-06 08:01] LABS: HIV 1&2 ANTIBODY NEGATIVE (NEGATIVE)
[2017-10-06] MEDS: Pantoprazole 40 mg EC Tab PO SCH (09:37)
[2017-10-06] MEDS: Vancomycin 1 gm/NS 200 ml 1 GM/200 ML BAG IVPB SCH ×2 (10:35→22:21)
[2017-10-06] MEDS: Enoxaparin 40 mg Syringe SC SCH (10:40)
--- NOTE | 2017-10-06 11:58 | CP.PCM.PN ---
Subjective - Date & Time of Evaluation Date of Evaluation: 10/06/17 Time of Evaluation: 09:00 - Subjective Subjective: left hand swollen / red iv rx in progress Objective - Vital Signs/Intake and Output Vital Signs (last 24 hours): Temp Pulse Resp BP Pulse Ox 98.2 F 72 20 108/69 96 10/06/17 07:25 10/06/17 07:25 10/06/17 07:25 10/06/17 07:25 10/06/17 11:30 Intake and Output: 10/06/17 10/06/17 06:59 18:59 Intake Total 800 Balance 800 - Medications Medications: Current Medications Acetaminophen (Tylenol 325mg Tab) 650 mg PO Q6 PRN PRN Reason: Pain, Mild (1-3) Alprazolam (Xanax) 0.25 mg PO BID PRN PRN Reason: Anxiety Stop: 10/12/17 11:27 Last Admin: 10/06/17 09:37 Dose: 0.25 mg Enoxaparin Sodium (Lovenox) 40 mg SC DAILY [facility] Last Admin: 10/06/17 10:40 Dose: Not Given Hydromorphone HCl (Dilaudid) 2 mg IVP Q4H PRN PRN Reason: Pain, severe (8-10) Last Admin: 10/06/17 09:37 Dose: 2 mg Ciprofloxacin (Cipro 400mg/200ml Dsw) 400 mg in 200 mls @ 133 mls/hr IVPB Q12H [facility] PRN Reason: Protocol Last Admin: 10/06/17 05:51 Dose: 133 mls/hr Vancomycin/Sodium Chloride (Vancomycin 1 Gm/Ns 200 Ml) 1 gm in 200 mls @ 166.7 mls/hr IVPB Q12 [facility] PRN Reason: Protocol Stop: 10/09/17 22:01 Last Admin: 10/06/17 10:35 Dose: 166.7 mls/hr Ketorolac Tromethamine (Toradol) 30 mg IVP Q6 PRN PRN Reason: Pain, severe (8-10) Last Admin: 10/04/17 15:24 Dose: 30 mg Ketorolac Tromethamine (Toradol) 15 mg IVP Q6 PRN PRN Reason: Pain, moderate (4-7) Pantoprazole Sodium (Protonix Ec Tab) 40 mg PO DAILY [facility] Last Admin: 10/06/17 09:37 Dose: 40 mg - Labs Labs: 10/04/17 09:41 10/04/17 09:41 - Constitutional Appears: Non-toxic, Chronically Ill - Head Exam Head Exam: NORMOCEPHALIC - Eye Exam Eye Exam: PERRL - ENT Exam ENT Exam: Mucous Membranes Dry - Neck Exam Neck Exam: absent: Lymphadenopathy - Respiratory Exam Respiratory Exam: Decreased Breath Sounds - Cardiovascular Exam Cardiovascular Exam: REGULAR RHYTHM - GI/Abdominal Exam GI & Abdominal Exam: Distended, Soft Assessment and Plan (1) Cellulitis of hand, left Status: Acute (2) Cellulitis of hand, left Status: Acute (3) Pain and swelling of left upper extremity Status: Acute - Assessment and Plan (Free Text) Assessment: iv rx for left hand / wrist infection in progress may need i and d
--- NOTE | 2017-10-06 13:24 | CP.PCM.PN ---
Subjective - Date & Time of Evaluation Date of Evaluation: 10/06/17 Time of Evaluation: 08:40 - Subjective Subjective: clinically same Objective - Vital Signs/Intake and Output Vital Signs (last 24 hours): Temp Pulse Resp BP Pulse Ox 98.2 F 72 20 108/69 96 10/06/17 07:25 10/06/17 07:25 10/06/17 07:25 10/06/17 07:25 10/06/17 11:30 Intake and Output: 10/06/17 10/06/17 06:59 18:59 Intake Total 800 Balance 800 - Medications Medications: Current Medications Acetaminophen (Tylenol 325mg Tab) 650 mg PO Q6 PRN PRN Reason: Pain, Mild (1-3) Alprazolam (Xanax) 0.25 mg PO BID PRN PRN Reason: Anxiety Stop: 10/12/17 11:27 Last Admin: 10/06/17 09:37 Dose: 0.25 mg Enoxaparin Sodium (Lovenox) 40 mg SC DAILY [facility] Last Admin: 10/06/17 10:40 Dose: Not Given Hydromorphone HCl (Dilaudid) 2 mg IVP Q4H PRN PRN Reason: Pain, severe (8-10) Last Admin: 10/06/17 09:37 Dose: 2 mg Ciprofloxacin (Cipro 400mg/200ml Dsw) 400 mg in 200 mls @ 133 mls/hr IVPB Q12H [facility] PRN Reason: Protocol Last Admin: 10/06/17 05:51 Dose: 133 mls/hr Vancomycin/Sodium Chloride (Vancomycin 1 Gm/Ns 200 Ml) 1 gm in 200 mls @ 166.7 mls/hr IVPB Q12 [facility] PRN Reason: Protocol Stop: 10/09/17 22:01 Last Admin: 10/06/17 10:35 Dose: 166.7 mls/hr Ketorolac Tromethamine (Toradol) 30 mg IVP Q6 PRN PRN Reason: Pain, severe (8-10) Last Admin: 10/04/17 15:24 Dose: 30 mg Ketorolac Tromethamine (Toradol) 15 mg IVP Q6 PRN PRN Reason: Pain, moderate (4-7) Pantoprazole Sodium (Protonix Ec Tab) 40 mg PO DAILY [facility] Last Admin: 10/06/17 09:37 Dose: 40 mg - Labs Labs: 10/04/17 09:41 10/04/17 09:41 - Constitutional Appears: Well - Head Exam Head Exam: ATRAUMATIC, NORMAL INSPECTION, NORMOCEPHALIC - Eye Exam Eye Exam: EOMI, Normal appearance, PERRL Pupil Exam: NORMAL ACCOMODATION, PERRL - ENT Exam ENT Exam: Mucous Membranes Moist, Normal Exam - Neck Exam Neck Exam: Full ROM, Normal Inspection. absent: Lymphadenopathy - Respiratory Exam Respiratory Exam: Decreased Breath Sounds - Cardiovascular Exam Cardiovascular Exam: REGULAR RHYTHM, +S1, +S2 - GI/Abdominal Exam GI & Abdominal Exam: Soft, Diminished Bowel Sounds - Rectal Exam Rectal Exam: Deferred Assessment and Plan - Assessment and Plan (Free Text) Plan: Swelling on the hand is significantly lower Status post surgery status post a possible hand surgeon if can be seen by Dr. Luna Continue IV Cipro ID consult Continue IV Vanco Continue same
--- NOTE | 2017-10-06 20:25 | CP.PCM.CON ---
History of Present Illness - History of Present Illness History of Present Illness: Hand Surgery Consult note. Dr. Luna 37yo F with PMHx of Anxiety, Hx of DVT here for evaluation of left hand swelling and erythema for 3 days. Patient also c/o pain which is described as throbbing and constant. Patient is unable to make a fist due to pain. Hand specialist consulted for further management. Patient denies any F/C. No N/V/D. Does report slight improvement in erythema after being on IV abx. No new complaints. PMHx: Anxiety, Asthma, Hx of DVT due trauma, Gastritis, Uterine Fibroids PSHx: Laparascopic colon resection, C Section x3, Tonsillectomy, Appendectomy, L Foot Sx, Right neck mass excision (benign), Bilat Breast reduction Social Hx: Current Tobacco use, Social ETOH use, Denies any illicit drugs Allergy: PCN, Iodine Review of Systems - Review of Systems All systems: reviewed and no additional remarkable complaints except - Constitutional Constitutional: absent: Chills, Fever - Cardiovascular Cardiovascular: absent: Chest Pain, Dyspnea - Respiratory Respiratory: absent: Dyspnea - Genitourinary Genitourinary: absent: Dysuria - Musculoskeletal Musculoskeletal: absent: Back Pain - Integumentary Integumentary: Erythema, Swelling Past Patient History - Infectious Disease Hx of Infectious Diseases: None - Past Medical History & Family History Past Medical History?: Yes - Past Social History Smoking Status: Never Smoked - CARDIAC Hx Cardiac Disorders: Yes Hx Hypercholesterolemia: Yes Hx Hypertension: Yes - PULMONARY Hx Respiratory Disorders: Yes Hx Asthma: Yes - NEUROLOGICAL Hx Neurological Disorder: No - HEENT Hx HEENT Problems: Yes Other/Comment: wears corrective lenses for reading - RENAL Hx Chronic Kidney Disease: No - ENDOCRINE/METABOLIC Hx Endocrine Disorders: No - HEMATOLOGICAL/ONCOLOGICAL Hx Blood Disorders: No Hx Human Immunodeficiency Virus (HIV): No - INTEGUMENTARY Hx Dermatological Problems: No - MUSCULOSKELETAL/RHEUMATOLOGICAL Hx Falls: No - GASTROINTESTINAL Hx Gastrointestinal Disorders: Yes Hx Gastritis: Yes - GENITOURINARY/GYNECOLOGICAL Hx Genitourinary Disorders: No - PSYCHIATRIC Hx Substance Use: No - SURGICAL HISTORY Hx Surgeries: Yes Hx Appendectomy: Yes Hx Tonsillectomy: Yes Other/Comment: C/S - ANESTHESIA Hx Anesthesia: Yes Hx Anesthesia Reactions: No Hx Malignant Hyperthermia: No Meds Allergies/Adverse Reactions: Allergies Allergy/AdvReac Type Severity Reaction Status Date / Time Penicillins Allergy Mild RASH Verified 10/04/17 09:09 iodine AdvReac Mild RASH Verified 10/04/17 09:09 - Medications Medications: Current Medications Acetaminophen (Tylenol 325mg Tab) 650 mg PO Q6 PRN PRN Reason: Pain, Mild (1-3) Last Admin: 10/06/17 14:43 Dose: 650 mg Alprazolam (Xanax) 0.25 mg PO BID PRN PRN Reason: Anxiety Stop: 10/12/17 11:27 Last Admin: 10/06/17 09:37 Dose: 0.25 mg Enoxaparin Sodium (Lovenox) 40 mg SC DAILY [facility] Last Admin: 10/06/17 10:40 Dose: Not Given Hydromorphone HCl (Dilaudid) 2 mg IVP Q4H PRN PRN Reason: Pain, severe (8-10) Last Admin: 10/06/17 18:32 Dose: 2 mg Ciprofloxacin (Cipro 400mg/200ml Dsw) 400 mg in 200 mls @ 133 mls/hr IVPB Q12H [facility] PRN Reason: Protocol Last Admin: 10/06/17 17:11 Dose: 133 mls/hr Vancomycin/Sodium Chloride (Vancomycin 1 Gm/Ns 200 Ml) 1 gm in 200 mls @ 166.7 mls/hr IVPB Q12 [facility] PRN Reason: Protocol Stop: 10/09/17 22:01 Last Admin: 10/06/17 10:35 Dose: 166.7 mls/hr Ondansetron HCl (Zofran Inj) 4 mg IVP Q8H PRN PRN Reason: Nausea/Vomiting Last Admin: 10/06/17 17:05 Dose: 4 mg Pantoprazole Sodium (Protonix Ec Tab) 40 mg PO DAILY [facility] Last Admin: 10/06/17 09:37 Dose: 40 mg Physical Exam - Constitutional Appears: Well, Non-toxic, No Acute Distress - Head Exam Head Exam: ATRAUMATIC, NORMAL INSPECTION, NORMOCEPHALIC - Eye Exam Eye Exam: EOMI, Normal appearance. absent: Scleral icterus - ENT Exam ENT Exam: Mucous Membranes Moist - Respiratory Exam Respiratory Exam: NORMAL BREATHING PATTERN. absent: Accessory Muscle Use, Respiratory Distress - Cardiovascular Exam Cardiovascular Exam: RRR. absent: JVD - GI/Abdominal Exam GI & Abdominal Exam: Soft. absent: Distended, Firm, Guarding - Extremities Exam Additional comments: Left hand: Swelling and erythema noted to the dorsum. Erythema reduced, improved compared to marking made in the morning. Pulses intact Tenderness to palpation Results - Vital Signs Recent Vital Signs: Last Vital Signs Temp 98.8 F 10/06/17 15:15 Pulse 71 10/06/17 15:15 Resp 20 10/06/17 15:15 BP 125/74 10/06/17 15:15 Pulse Ox 98 10/06/17 15:15 - Labs Result Diagrams: 10/04/17 09:41 10/04/17 09:41 Labs: Laboratory Results - last 24 hr 10/06/17 10/06/17 10/06/17 06:35 06:35 06:35 Uric Acid 5.6 Vancomycin Trough 15.0 H Hepatitis A IgM Ab Negative Hep Bs Antigen Negative Hep B Core IgM Ab Negative Hepatitis C Antibody Negative HIV 1&2 Antibody Screen Negative Assessment & Plan - Assessment and Plan (Free Text) Assessment: 37yo F with left hand cellulitis Plan: - Demarcate redness with ink pen to monitor improvement - Continue IV Abx - serial exams - Pain management Further recs as per Dr. Jeremy Chappell PGY1 Surgery pager: [phone]
--- NOTE | 2017-10-06 20:25 | CARD ---
APPROVED REPORT EKG Measurement Heart [id number] <Conclusion> Normal sinus rhythm Normal ECG
[2017-10-07] MEDS: Ciprofloxacin 400mg/200ml D5W 400 MG/200 ML BAG IVPB SCH ×2 (06:03→17:16)
--- NOTE | 2017-10-07 09:55 | CP.PCM.PN ---
<Kris Aly S - Last Filed: 10/07/17 11:37> Subjective - Date & Time of Evaluation Date of Evaluation: 10/07/17 Time of Evaluation: 09:55 - Subjective Subjective: Progress Note for Dr. Louis's Service Pt seen and examined at bedside. She has chills and is shaking. The nursing staff report oral temperature at 98.8. Pt states that she feels cold. She states that her left hand continues to hurt. Denies any fevers. She states that she does not want any surgical intervention at all. She feels this will improve with abx alone. Dr. Louis, who has seen the infection prior, states that it is dramatically improved on inspection. Objective - Vital Signs/Intake and Output Vital Signs (last 24 hours): Temp Pulse Resp BP Pulse Ox 98.2 F 78 20 119/83 97 10/07/17 08:00 10/07/17 08:00 10/07/17 08:00 10/07/17 08:00 10/07/17 08:00 Intake and Output: 10/07/17 10/07/17 06:59 18:59 Intake Total 1300 Balance 1300 - Medications Medications: Current Medications Acetaminophen (Tylenol 325mg Tab) 650 mg PO Q6 PRN PRN Reason: Pain, Mild (1-3) Last Admin: 10/06/17 23:03 Dose: 650 mg Alprazolam (Xanax) 0.25 mg PO BID PRN PRN Reason: Anxiety Stop: 10/12/17 11:27 Last Admin: 10/07/17 08:31 Dose: 0.25 mg Enoxaparin Sodium (Lovenox) 40 mg SC DAILY [facility] Last Admin: 10/06/17 10:40 Dose: Not Given Hydromorphone HCl (Dilaudid) 2 mg IVP Q4H PRN PRN Reason: Pain, severe (8-10) Last Admin: 10/07/17 06:55 Dose: 2 mg Ciprofloxacin (Cipro 400mg/200ml Dsw) 400 mg in 200 mls @ 133 mls/hr IVPB Q12H [facility] PRN Reason: Protocol Last Admin: 10/07/17 06:03 Dose: 133 mls/hr Vancomycin/Sodium Chloride (Vancomycin 1 Gm/Ns 200 Ml) 1 gm in 200 mls @ 166.7 mls/hr IVPB Q12 [facility] PRN Reason: Protocol Stop: 10/09/17 22:01 Last Admin: 10/06/17 22:21 Dose: 166.7 mls/hr Ondansetron HCl (Zofran Inj) 4 mg IVP Q8H PRN PRN Reason: Nausea/Vomiting Last Admin: 10/06/17 17:05 Dose: 4 mg Pantoprazole Sodium (Protonix Ec Tab) 40 mg PO DAILY [facility] Last Admin: 10/06/17 09:37 Dose: 40 mg - Labs Labs: 10/04/17 09:41 10/04/17 09:41 - Constitutional Appears: Other (shivering/rigors) - Head Exam Head Exam: ATRAUMATIC, NORMAL INSPECTION - Eye Exam Eye Exam: EOMI, Normal appearance - ENT Exam ENT Exam: Mucous Membranes Moist - Respiratory Exam Respiratory Exam: Clear to Ausculation Bilateral, NORMAL BREATHING PATTERN - Cardiovascular Exam Cardiovascular Exam: REGULAR RHYTHM - GI/Abdominal Exam GI & Abdominal Exam: Soft. absent: Tenderness - Extremities Exam Additional comments: left hand dorsal aspect is mildly erythematous with minimal swelling. The erythema has withdrawn from the line marked on the patient. - Neurological Exam Neurological Exam: Alert, Awake, Oriented x3 - Skin Skin Exam: Dry, Warm Assessment and Plan - Assessment and Plan (Free Text) Plan: Left hand cellulitis ID consulted Dr. Sirisha richards appreciated Cipro 400mg IV q12hrs Vancomycin 1g q12hrs Trough 14.[address] Calzada- susie appreciated Hand specialist recommended Dr. Jeremy kearney- recs appreciated Xray hand- soft tissue swelling Xray forearm- soft tissue swelling CT upper extremity- soft tissue swelling WBC: 5.7 Follow up blood cx Dilaudid 2mg IV q4hrs prn severe pain tylenol 650mg q6hrs prn pain Afebrile Anxiety xanax 0.25mg PO BID hx DVT 2/2 trauma Lovenox 40mg sc daily Prophylaxis zofran prn nausea/vomiting protonic 40mg PO daily case discussed with Dr. Louis. All management as per Dr. Louis. <Beckie Louis - Last Filed: 10/07/17 17:11> Subjective - Subjective Subjective: Discussed with the staff and resident at length for left hand cellulitis no family bedside Objective - Vital Signs/Intake and Output Vital Signs (last 24 hours): Temp Pulse Resp BP Pulse Ox 98.8 F 75 20 107/67 96 10/07/17 15:15 10/07/17 15:15 10/07/17 15:15 10/07/17 15:15 10/07/17 15:15 Intake and Output: 10/07/17 10/07/17 06:59 18:59 Intake Total 1300 580 Balance 1300 580 - Medications Medications: Current Medications Acetaminophen (Tylenol 325mg Tab) 650 mg PO Q6 PRN PRN Reason: Pain, Mild (1-3) Last Admin: 10/06/17 23:03 Dose: 650 mg Alprazolam (Xanax) 0.25 mg PO BID PRN PRN Reason: Anxiety Stop: 10/12/17 11:27 Last Admin: 10/07/17 08:31 Dose: 0.25 mg Enoxaparin Sodium (Lovenox) 40 mg SC DAILY [facility] Last Admin: 10/07/17 11:00 Dose: Not Given Hydromorphone HCl (Dilaudid) 2 mg IVP Q4H PRN PRN Reason: Pain, severe (8-10) Last Admin: 10/07/17 17:08 Dose: 2 mg Ciprofloxacin (Cipro 400mg/200ml Dsw) 400 mg in 200 mls @ 133 mls/hr IVPB Q12H [facility] PRN Reason: Protocol Last Admin: 10/07/17 06:03 Dose: 133 mls/hr Vancomycin/Sodium Chloride (Vancomycin 1 Gm/Ns 200 Ml) 1 gm in 200 mls @ 166.7 mls/hr IVPB Q12 [facility] PRN Reason: Protocol Stop: 10/09/17 22:01 Last Admin: 10/07/17 11:00 Dose: 166.7 mls/hr Ondansetron HCl (Zofran Inj) 4 mg IVP Q8H PRN PRN Reason: Nausea/Vomiting Last Admin: 10/06/17 17:05 Dose: 4 mg Pantoprazole Sodium (Protonix Ec Tab) 40 mg PO DAILY [facility] Last Admin: 10/07/17 11:00 Dose: 40 mg - Labs Labs: 10/07/17 09:54 10/07/17 10:38
[2017-10-07] MEDS ORDERED: Influenza Vaccine 60 mcg/0.5 mL SYR (4YR UP) IM ONE (10:00)
[2017-10-07 10:02] LABS: BASO % 0.5 % (0.0-2.0); EOS # 0.2 K/uL (0.0-0.7); EOS % 3.6 % (0.0-4.0); LYMPH # 1.6 K/uL (1.0-4.3); LYMPH % 27.3 % (20.0-40.0); MEAN CELL VOLUME 89.1 fL (81.0-99.0); MEAN CORPUSCULAR HEMOGLOBIN 29.9 pg (27.0-31.0); MEAN CORPUSCULAR HGB CONC 33.5 g/dL (33.0-37.0); MONO # 0.4 K/uL (0.0-0.8); MONO % 7.5 % (0.0-10.0); NEUT # 3.5 K/uL (1.8-7.0); NEUT % 61.1 % (50.0-75.0); RBC 4.3 Mil/uL (3.80-5.20); RED CELL DISTRIBUTION WIDTH 13.4 % (11.5-14.5); WHITE BLOOD COUNT 5.7 K/uL (4.8-10.8)
[2017-10-07 10:07] LABS: HEMOGLOBIN 12.9 g/dL (11.0-16.0)
--- NOTE | 2017-10-07 10:36 | CP.PCM.PN ---
<Mohamud Chappell - Last Filed: 10/07/17 10:31> Subjective - Date & Time of Evaluation Date of Evaluation: 10/07/17 Time of Evaluation: 07:15 - Subjective Subjective: Surgery Progress note. Dr. Calzada Pt seen and examined at bedside. No acute events overnight. Does report some chills, no fevers. Reports mild improvement in swelling, does report some tingling to the distal fingers. Objective - Vital Signs/Intake and Output Vital Signs (last 24 hours): Temp Pulse Resp BP Pulse Ox 98.2 F 78 20 119/83 97 10/07/17 08:00 10/07/17 08:00 10/07/17 08:00 10/07/17 08:00 10/07/17 08:00 Intake and Output: 10/07/17 10/07/17 06:59 18:59 Intake Total 1300 Balance 1300 - Medications Medications: Current Medications Acetaminophen (Tylenol 325mg Tab) 650 mg PO Q6 PRN PRN Reason: Pain, Mild (1-3) Last Admin: 10/06/17 23:03 Dose: 650 mg Alprazolam (Xanax) 0.25 mg PO BID PRN PRN Reason: Anxiety Stop: 10/12/17 11:27 Last Admin: 10/07/17 08:31 Dose: 0.25 mg Enoxaparin Sodium (Lovenox) 40 mg SC DAILY [facility] Last Admin: 10/06/17 10:40 Dose: Not Given Hydromorphone HCl (Dilaudid) 2 mg IVP Q4H PRN PRN Reason: Pain, severe (8-10) Last Admin: 10/07/17 06:55 Dose: 2 mg Ciprofloxacin (Cipro 400mg/200ml Dsw) 400 mg in 200 mls @ 133 mls/hr IVPB Q12H [facility] PRN Reason: Protocol Last Admin: 10/07/17 06:03 Dose: 133 mls/hr Vancomycin/Sodium Chloride (Vancomycin 1 Gm/Ns 200 Ml) 1 gm in 200 mls @ 166.7 mls/hr IVPB Q12 [facility] PRN Reason: Protocol Stop: 10/09/17 22:01 Last Admin: 10/06/17 22:21 Dose: 166.7 mls/hr Ondansetron HCl (Zofran Inj) 4 mg IVP Q8H PRN PRN Reason: Nausea/Vomiting Last Admin: 10/06/17 17:05 Dose: 4 mg Pantoprazole Sodium (Protonix Ec Tab) 40 mg PO DAILY [facility] Last Admin: 10/06/17 09:37 Dose: 40 mg - Labs Labs: 10/07/17 09:54 10/04/17 09:41 - Constitutional Appears: Non-toxic, No Acute Distress - Head Exam Head Exam: ATRAUMATIC, NORMAL INSPECTION, NORMOCEPHALIC - Eye Exam Eye Exam: EOMI, Normal appearance - ENT Exam ENT Exam: Mucous Membranes Moist - Respiratory Exam Respiratory Exam: NORMAL BREATHING PATTERN. absent: Accessory Muscle Use, Respiratory Distress - Cardiovascular Exam Cardiovascular Exam: RRR. absent: JVD - GI/Abdominal Exam GI & Abdominal Exam: Soft. absent: Distended, Guarding, Rigid, Tenderness, Rebound - Extremities Exam Additional comments: left hand with erythema and swelling improving. still unable to make a fist of left hand. Distal pulses intact. Tenderness to palpation - Neurological Exam Neurological Exam: Alert, Awake, Oriented x3 - Skin Skin Exam: Erythema, Intact, Warm Assessment and Plan - Assessment and Plan (Free Text) Assessment: 37yo F with left hand cellulitis Plan: - Repeat blood cultures - IV Abx as per ID - Continue to elevate left upper extremity - serial exams Further recs as per Dr. Zheng Chappell PGY1 surgery pager: [phone] <Chu Calzada - Last Filed: 10/08/17 21:30> Objective - Vital Signs/Intake and Output Vital Signs (last 24 hours): Temp Pulse Resp BP Pulse Ox 99.5 F 95 H 20 111/67 97 10/08/17 15:15 10/08/17 15:15 10/08/17 15:15 10/08/17 15:15 10/08/17 15:15 Intake and Output: 10/08/17 10/09/17 18:59 06:59 Intake Total 1120 Balance 1120 - Medications Medications: Current Medications Acetaminophen (Tylenol 325mg Tab) 650 mg PO Q6 PRN PRN Reason: Pain, Mild (1-3) Last Admin: 10/07/17 18:42 Dose: 650 mg Alprazolam (Xanax) 0.25 mg PO BID PRN PRN Reason: Anxiety Stop: 10/12/17 11:27 Last Admin: 10/08/17 16:43 Dose: 0.25 mg Diphenhydramine HCl (Benadryl) 25 mg PO Q6 PRN PRN Reason: Allergy symptoms Enoxaparin Sodium (Lovenox) 40 mg SC DAILY [facility] Last Admin: 10/08/17 09:31 Dose: Not Given Hydromorphone HCl (Dilaudid) 1 mg IVP Q4H PRN PRN Reason: Pain, severe (8-10) Last Admin: 10/08/17 18:41 Dose: 1 mg Vancomycin/Sodium Chloride (Vancomycin 1 Gm/Ns 200 Ml) 1 gm in 200 mls @ 166.7 mls/hr IVPB Q12 [facility] PRN Reason: Protocol Stop: 10/09/17 22:01 Last Admin: 10/08/17 20:59 Dose: 166.7 mls/hr Ondansetron HCl (Zofran Inj) 4 mg IVP Q8H PRN PRN Reason: Nausea/Vomiting Last Admin: 10/08/17 07:46 Dose: 4 mg Pantoprazole Sodium (Protonix Ec Tab) 40 mg PO DAILY [facility] Last Admin: 10/08/17 09:30 Dose: 40 mg Valacyclovir HCl (Valtrex) 1,000 mg PO TID [facility] PRN Reason: Protocol Stop: 10/15/17 14:01 Last Admin: 10/08/17 17:31 Dose: Not Given - Labs Labs: 10/08/17 07:22 10/08/17 07:22 Attending/Attestation - Attestation I have personally seen and examined this patient.: Yes I have fully participated in the care of the patient.: Yes I have reviewed all pertinent clinical information, including history, physical exam and plan: Yes Notes (Text): Pt was seen and examined at bedside Agree with above note and assessment Pt has severe chills Stat reconsult ID Stat Hand surgery reevaluation No drainable collection Hand elevation IV antibiotics c.w current mx Plan d.w pt and PMD in detail Risk and benefit explained in detail
--- NOTE | 2017-10-07 10:54 | CP.PCM.PN ---
Subjective - Date & Time of Evaluation Date of Evaluation: 10/07/17 Time of Evaluation: 08:00 - Subjective Subjective: slow progress chills but no fever cultures repeated swelling less Objective - Vital Signs/Intake and Output Vital Signs (last 24 hours): Temp Pulse Resp BP Pulse Ox 98.2 F 78 20 119/83 97 10/07/17 08:00 10/07/17 08:00 10/07/17 08:00 10/07/17 08:00 10/07/17 08:00 Intake and Output: 10/07/17 10/07/17 06:59 18:59 Intake Total 1300 Balance 1300 - Medications Medications: Current Medications Acetaminophen (Tylenol 325mg Tab) 650 mg PO Q6 PRN PRN Reason: Pain, Mild (1-3) Last Admin: 10/06/17 23:03 Dose: 650 mg Alprazolam (Xanax) 0.25 mg PO BID PRN PRN Reason: Anxiety Stop: 10/12/17 11:27 Last Admin: 10/07/17 08:31 Dose: 0.25 mg Enoxaparin Sodium (Lovenox) 40 mg SC DAILY [facility] Last Admin: 10/06/17 10:40 Dose: Not Given Hydromorphone HCl (Dilaudid) 2 mg IVP Q4H PRN PRN Reason: Pain, severe (8-10) Last Admin: 10/07/17 06:55 Dose: 2 mg Ciprofloxacin (Cipro 400mg/200ml Dsw) 400 mg in 200 mls @ 133 mls/hr IVPB Q12H [facility] PRN Reason: Protocol Last Admin: 10/07/17 06:03 Dose: 133 mls/hr Vancomycin/Sodium Chloride (Vancomycin 1 Gm/Ns 200 Ml) 1 gm in 200 mls @ 166.7 mls/hr IVPB Q12 [facility] PRN Reason: Protocol Stop: 10/09/17 22:01 Last Admin: 10/06/17 22:21 Dose: 166.7 mls/hr Ondansetron HCl (Zofran Inj) 4 mg IVP Q8H PRN PRN Reason: Nausea/Vomiting Last Admin: 10/06/17 17:05 Dose: 4 mg Pantoprazole Sodium (Protonix Ec Tab) 40 mg PO DAILY [facility] Last Admin: 10/06/17 09:37 Dose: 40 mg - Labs Labs: 10/07/17 09:54 10/04/17 09:41 - Constitutional Appears: Non-toxic, Chronically Ill - Head Exam Head Exam: NORMOCEPHALIC - Eye Exam Eye Exam: PERRL - ENT Exam ENT Exam: Mucous Membranes Dry - Neck Exam Neck Exam: absent: Lymphadenopathy - Respiratory Exam Respiratory Exam: Decreased Breath Sounds - Cardiovascular Exam Cardiovascular Exam: REGULAR RHYTHM - GI/Abdominal Exam GI & Abdominal Exam: Distended - Rectal Exam Rectal Exam: Deferred Assessment and Plan (1) Cellulitis of hand, left Status: Acute (2) Cellulitis of hand, left Status: Acute (3) Pain and swelling of left upper extremity Status: Acute - Assessment and Plan (Free Text) Assessment: debio reordered
[2017-10-07 10:59] LABS: ALB/GLOB RATIO 1.2 (1.0-2.1); ALBUMIN 3.7 g/dL (3.5-5.0); ALT/SGPT 125 U/L (9-52); AST/SGOT 57 U/L (14-36); BLOOD UREA NITROGEN 13 mg/dL (7-17); CALCIUM 8.6 mg/dl (8.6-10.4); GFR AFRICAN-AMERICAN > 60; GFR NON-AFRICAN AMERICAN > 60
[2017-10-07] MEDS: Pantoprazole 40 mg EC Tab PO SCH (11:00)
[2017-10-07] MEDS: Enoxaparin 40 mg Syringe SC SCH (11:00)
[2017-10-07] MEDS: Vancomycin 1 gm/NS 200 ml 1 GM/200 ML BAG IVPB SCH ×2 (11:00→21:22)
--- NOTE | 2017-10-07 17:10 | CP.PCM.PN ---
Subjective - Date & Time of Evaluation Date of Evaluation: 10/07/17 Time of Evaluation: 07:30 - Subjective Subjective: clinically same Objective - Vital Signs/Intake and Output Vital Signs (last 24 hours): Temp Pulse Resp BP Pulse Ox 98.8 F 75 20 107/67 96 10/07/17 15:15 10/07/17 15:15 10/07/17 15:15 10/07/17 15:15 10/07/17 15:15 Intake and Output: 10/07/17 10/07/17 06:59 18:59 Intake Total 1300 580 Balance 1300 580 - Medications Medications: Current Medications Acetaminophen (Tylenol 325mg Tab) 650 mg PO Q6 PRN PRN Reason: Pain, Mild (1-3) Last Admin: 10/06/17 23:03 Dose: 650 mg Alprazolam (Xanax) 0.25 mg PO BID PRN PRN Reason: Anxiety Stop: 10/12/17 11:27 Last Admin: 10/07/17 08:31 Dose: 0.25 mg Enoxaparin Sodium (Lovenox) 40 mg SC DAILY [facility] Last Admin: 10/07/17 11:00 Dose: Not Given Hydromorphone HCl (Dilaudid) 2 mg IVP Q4H PRN PRN Reason: Pain, severe (8-10) Last Admin: 10/07/17 17:08 Dose: 2 mg Ciprofloxacin (Cipro 400mg/200ml Dsw) 400 mg in 200 mls @ 133 mls/hr IVPB Q12H [facility] PRN Reason: Protocol Last Admin: 10/07/17 06:03 Dose: 133 mls/hr Vancomycin/Sodium Chloride (Vancomycin 1 Gm/Ns 200 Ml) 1 gm in 200 mls @ 166.7 mls/hr IVPB Q12 [facility] PRN Reason: Protocol Stop: 10/09/17 22:01 Last Admin: 10/07/17 11:00 Dose: 166.7 mls/hr Ondansetron HCl (Zofran Inj) 4 mg IVP Q8H PRN PRN Reason: Nausea/Vomiting Last Admin: 10/06/17 17:05 Dose: 4 mg Pantoprazole Sodium (Protonix Ec Tab) 40 mg PO DAILY [facility] Last Admin: 10/07/17 11:00 Dose: 40 mg - Labs Labs: 10/07/17 09:54 10/07/17 10:38 - Constitutional Appears: Well - Head Exam Head Exam: ATRAUMATIC, NORMAL INSPECTION, NORMOCEPHALIC - Eye Exam Eye Exam: EOMI, Normal appearance, PERRL Pupil Exam: NORMAL ACCOMODATION, PERRL - ENT Exam ENT Exam: Mucous Membranes Moist, Normal Exam - Neck Exam Neck Exam: Full ROM, Normal Inspection. absent: Lymphadenopathy - Respiratory Exam Respiratory Exam: Decreased Breath Sounds - Cardiovascular Exam Cardiovascular Exam: REGULAR RHYTHM, +S1, +S2 - GI/Abdominal Exam GI & Abdominal Exam: Soft, Diminished Bowel Sounds - Rectal Exam Rectal Exam: Deferred Assessment and Plan - Assessment and Plan (Free Text) Plan: Spoke to Dr. Luna who is hand surgeon all the patient's hand is significantly better although patient has still achieving patient's does not require surgery as per Dr. Luna Follow-up with the surgeon Follow-up with ID ID consultations Continue everything as ordered Left hand cellulitis ID consulted Dr. Obrien- susie appreciated Cipro 400mg IV q12hrs Vancomycin 1g q12hrs Trough 14.[address] Calzada- recs appreciated Hand specialist recommended Dr. Luna consulted- recs appreciated Xray hand- soft tissue swelling Xray forearm- soft tissue swelling CT upper extremity- soft tissue swelling WBC: 5.7 Follow up blood cx Dilaudid 2mg IV q4hrs prn severe pain tylenol 650mg q6hrs prn pain Afebrile Anxiety xanax 0.25mg PO BID hx DVT 2/2 trauma Lovenox 40mg sc daily Prophylaxis zofran prn nausea/vomiting
[2017-10-08] MEDS: Ciprofloxacin 400mg/200ml D5W 400 MG/200 ML BAG IVPB SCH (05:32)
[2017-10-08 07:37] LABS: BASO % 0.4 % (0.0-2.0); EOS # 0.2 K/uL (0.0-0.7); EOS % 3.4 % (0.0-4.0); HEMOGLOBIN 13.2 g/dL (11.0-16.0); LYMPH # 1.4 K/uL (1.0-4.3); LYMPH % 29.9 % (20.0-40.0); MEAN CELL VOLUME 87.7 fL (81.0-99.0); MEAN CORPUSCULAR HEMOGLOBIN 30.2 pg (27.0-31.0); MEAN CORPUSCULAR HGB CONC 34.4 g/dL (33.0-37.0); MEAN PLATELET VOLUME 8.6 fL (7.2-11.7); MONO # 0.4 K/uL (0.0-0.8); MONO % 8.2 % (0.0-10.0); NEUT # 2.8 K/uL (1.8-7.0); NEUT % 58.1 % (50.0-75.0); NRBC % 0.1 % (0.0-2.0); RBC 4.37 Mil/uL (3.80-5.20); RED CELL DISTRIBUTION WIDTH 13.1 % (11.5-14.5); WHITE BLOOD COUNT 4.8 K/uL (4.8-10.8)
[2017-10-08 07:48] LABS: ALB/GLOB RATIO 1.2 (1.0-2.1); ALBUMIN 3.7 g/dL (3.5-5.0); ALT/SGPT 305 U/L (9-52); AST/SGOT 243 U/L (14-36); BLOOD UREA NITROGEN 10 mg/dL (7-17); CALCIUM 8.7 mg/dl (8.6-10.4); GFR AFRICAN-AMERICAN > 60; GFR NON-AFRICAN AMERICAN > 60
[2017-10-08] MEDS: Pantoprazole 40 mg EC Tab PO SCH (09:30)
[2017-10-08] MEDS: Enoxaparin 40 mg Syringe SC SCH (09:31)
[2017-10-08] MEDS: Vancomycin 1 gm/NS 200 ml 1 GM/200 ML BAG IVPB SCH ×2 (09:31→20:59)
--- NOTE | 2017-10-08 09:54 | CP.PCM.PN ---
Subjective - Date & Time of Evaluation Date of Evaluation: 10/08/17 Time of Evaluation: 09:51 - Subjective Subjective: Progress Note for Dr. Louis's Service Pt seen and examined at bedside. She has chills and is shaking. Pt states that she feels cold. She states that her left hand continues to hurt but feels better than it has been. She has developed a rash on the left side of her neck where she was feeling a burning rash yesterday. This area continues to have a burning/stinging pain. Objective - Vital Signs/Intake and Output Vital Signs (last 24 hours): Temp Pulse Resp BP Pulse Ox 99.9 F H 68 20 131/86 99 10/08/17 07:38 10/08/17 07:38 10/08/17 07:38 10/08/17 07:38 10/08/17 07:38 Intake and Output: 10/08/17 10/08/17 06:59 18:59 Intake Total 700 440 Balance 700 440 - Medications Medications: Current Medications Acetaminophen (Tylenol 325mg Tab) 650 mg PO Q6 PRN PRN Reason: Pain, Mild (1-3) Last Admin: 10/07/17 18:42 Dose: 650 mg Acyclovir (Zovirax) 800 mg PO 5XD [facility] PRN Reason: Protocol Alprazolam (Xanax) 0.25 mg PO BID PRN PRN Reason: Anxiety Stop: 10/12/17 11:27 Last Admin: 10/07/17 20:31 Dose: 0.25 mg Enoxaparin Sodium (Lovenox) 40 mg SC DAILY [facility] Last Admin: 10/08/17 09:31 Dose: Not Given Hydromorphone HCl (Dilaudid) 1 mg IVP Q4H PRN PRN Reason: Pain, severe (8-10) Ciprofloxacin (Cipro 400mg/200ml Dsw) 400 mg in 200 mls @ 133 mls/hr IVPB Q12H [facility] PRN Reason: Protocol Last Admin: 10/08/17 05:32 Dose: 133 mls/hr Vancomycin/Sodium Chloride (Vancomycin 1 Gm/Ns 200 Ml) 1 gm in 200 mls @ 166.7 mls/hr IVPB Q12 [facility] PRN Reason: Protocol Stop: 10/09/17 22:01 Last Admin: 10/08/17 09:31 Dose: 166.7 mls/hr Ondansetron HCl (Zofran Inj) 4 mg IVP Q8H PRN PRN Reason: Nausea/Vomiting Last Admin: 10/08/17 07:46 Dose: 4 mg Pantoprazole Sodium (Protonix Ec Tab) 40 mg PO DAILY [facility] Last Admin: 10/08/17 09:30 Dose: 40 mg - Labs Labs: 10/08/17 07:22 10/08/17 07:22 - Constitutional Appears: No Acute Distress - Head Exam Head Exam: ATRAUMATIC, NORMAL INSPECTION - Eye Exam Eye Exam: EOMI - ENT Exam ENT Exam: Mucous Membranes Moist - Respiratory Exam Respiratory Exam: Clear to Ausculation Bilateral - Cardiovascular Exam Cardiovascular Exam: REGULAR RHYTHM - GI/Abdominal Exam GI & Abdominal Exam: Soft. absent: Tenderness - Neurological Exam Neurological Exam: Alert, Awake, Oriented x3 - Skin Additional comments: erythema on left hand is receding. swelling is reduced. Vesicular rash on left side of neck. Assessment and Plan - Assessment and Plan (Free Text) Plan: Left hand cellulitis- improving ID consulted Dr. Sirisha richards appreciated Cipro 400mg IV q12hrs Vancomycin 1g q12hrs Trough 14.[address] Calzada- susie appreciated Hand specialist recommended Dr. Jeremy kearney- recs appreciated- coming to see patient today Xray hand- soft tissue swelling Xray forearm- soft tissue swelling CT upper extremity- soft tissue swelling WBC: 5.7 Follow up blood cx Dilaudid 2mg IV q4hrs prn severe pain tylenol 650mg q6hrs prn pain Afebrile Herpes Zoster start Valtrex 1g PO TID x7days 10/08/17 Anxiety xanax 0.25mg PO BID hx DVT 2/2 trauma Lovenox 40mg sc daily Prophylaxis zofran prn nausea/vomiting protonix 40mg PO daily case discussed with Dr. Louis. All management as per Dr. Louis.
--- NOTE | 2017-10-08 11:51 | US ---
HISTORY: transaminitis- evaluate hepatobiliary system COMPARISON: None. TECHNIQUE: Sonographic evaluation of the abdomen. FINDINGS: LIVER: Measures 16.4 cm. Increased echogenicity of the liver parenchyma. No mass. Mild intrahepatic bile duct dilatation. GALLBLADDER: Unremarkable. No gallstones. COMMON BILE DUCT: Dilated, measuring 12 mm. No stones. PANCREAS: Unremarkable as visualized. No mass. No ductal dilatation. RIGHT KIDNEY: Measures 10.8 x 3.8 x 4.3cm. Normal echogenicity. No calculus, mass, or hydronephrosis. LEFT KIDNEY: Measures 10.9 x 5.1 x 4.4cm. Normal echogenicity. No calculus, mass, or hydronephrosis. SPLEEN: Normal in size and contour. Small splenule. No mass. AORTA: No aneurysmal dilatation. IVC: Unremarkable. OTHER FINDINGS: None. IMPRESSION: Dilated CBD measuring 1.2 cm with mild intrahepatic ductal dilatation. Choledocholithiasis not excluded. MRCP can be obtained for further evaluation as clinically warranted. Hepatic steatosis.
[2017-10-08] MEDS ORDERED: MethylPREDNISolone 40 mg Vial IVP STA (12:14)
[2017-10-08] MEDS ORDERED: DiphenhydrAMINE 50 mg/ml Inj IVP STA (12:14)
[2017-10-08 13:39] LABS: HEPATITIS B SURFACE AG Negative (NEGATIVE)
[2017-10-08 13:45] LABS: HEPATITIS A IGM NEGATIVE (NEGATIVE); HEPATITIS B CORE AB NEGATIVE (NEGATIVE)
[2017-10-08 13:56] LABS: HEPATITIS C ANTIBODY NEGATIVE (NEGATIVE)
[2017-10-08] MEDS: HYDROmorphone 1 mg/ml ISec IVP PRN ×2 (14:10→18:41)
--- NOTE | 2017-10-08 15:44 | CP.PCM.PN ---
Subjective - Date & Time of Evaluation Date of Evaluation: 10/08/17 Time of Evaluation: 09:00 - Subjective Subjective: developed rash and increased LFT cipro held hand less swollen GI on board cont IV Vanco discussed with dr Misha Louis Objective - Vital Signs/Intake and Output Vital Signs (last 24 hours): Temp Pulse Resp BP Pulse Ox 99.9 F H 68 20 131/86 99 10/08/17 07:38 10/08/17 07:38 10/08/17 07:38 10/08/17 07:38 10/08/17 07:38 Intake and Output: 10/08/17 10/08/17 06:59 18:59 Intake Total 700 440 Balance 700 440 - Medications Medications: Current Medications Acetaminophen (Tylenol 325mg Tab) 650 mg PO Q6 PRN PRN Reason: Pain, Mild (1-3) Last Admin: 10/07/17 18:42 Dose: 650 mg Alprazolam (Xanax) 0.25 mg PO BID PRN PRN Reason: Anxiety Stop: 10/12/17 11:27 Last Admin: 10/07/17 20:31 Dose: 0.25 mg Enoxaparin Sodium (Lovenox) 40 mg SC DAILY [facility] Last Admin: 10/08/17 09:31 Dose: Not Given Hydromorphone HCl (Dilaudid) 1 mg IVP Q4H PRN PRN Reason: Pain, severe (8-10) Last Admin: 10/08/17 14:10 Dose: 1 mg Vancomycin/Sodium Chloride (Vancomycin 1 Gm/Ns 200 Ml) 1 gm in 200 mls @ 166.7 mls/hr IVPB Q12 D[facility]LLAN PRN Reason: Protocol Stop: 10/09/17 22:01 Last Admin: 10/08/17 09:31 Dose: 166.7 mls/hr Ondansetron HCl (Zofran Inj) 4 mg IVP Q8H PRN PRN Reason: Nausea/Vomiting Last Admin: 10/08/17 07:46 Dose: 4 mg Pantoprazole Sodium (Protonix Ec Tab) 40 mg PO DAILY [facility] Last Admin: 10/08/17 09:30 Dose: 40 mg Valacyclovir HCl (Valtrex) 1,000 mg PO TID [facility] PRN Reason: Protocol Stop: 10/15/17 14:01 Last Admin: 10/08/17 14:06 Dose: Not Given - Labs Labs: 10/08/17 07:22 10/08/17 07:22 - Constitutional Appears: Non-toxic - Head Exam Head Exam: NORMOCEPHALIC - Eye Exam Eye Exam: PERRL - ENT Exam ENT Exam: Mucous Membranes Dry - Neck Exam Neck Exam: absent: Lymphadenopathy, Thyromegaly - Respiratory Exam Respiratory Exam: Decreased Breath Sounds - Cardiovascular Exam Cardiovascular Exam: REGULAR RHYTHM - GI/Abdominal Exam GI & Abdominal Exam: Distended, Soft. absent: Tenderness - Rectal Exam Rectal Exam: Deferred - Exam Exam: NORMAL INSPECTION - Extremities Exam Extremities Exam: absent: Pedal Edema - Back Exam Back Exam: absent: CVA tenderness (L), CVA tenderness (R) - Neurological Exam Neurological Exam: Alert, Awake - Psychiatric Exam Psychiatric exam: Normal Mood - Skin Skin Exam: Intact, Rash Assessment and Plan (1) Cellulitis of hand, left Status: Acute (2) Cellulitis of hand, left Status: Acute (3) Pain and swelling of left upper extremity Status: Acute
--- NOTE | 2017-10-08 16:25 | CP.PCM.PN ---
<Mary Jane Alvarado - Last Filed: 10/08/17 16:18> Subjective - Date & Time of Evaluation Date of Evaluation: 10/08/17 Time of Evaluation: 08:00 - Subjective Subjective: Surgery: Dr. Calzada Pt seen and examined. States her hand feels better but she hasn't had much of an appetite. Admits to some epigastric pain but denies N/V, F/C. Objective - Vital Signs/Intake and Output Vital Signs (last 24 hours): Temp Pulse Resp BP Pulse Ox 99.9 F H 68 20 131/86 99 10/08/17 07:38 10/08/17 07:38 10/08/17 07:38 10/08/17 07:38 10/08/17 07:38 Intake and Output: 10/08/17 10/08/17 06:59 18:59 Intake Total 700 1120 Balance 700 1120 - Medications Medications: Current Medications Acetaminophen (Tylenol 325mg Tab) 650 mg PO Q6 PRN PRN Reason: Pain, Mild (1-3) Last Admin: 10/07/17 18:42 Dose: 650 mg Alprazolam (Xanax) 0.25 mg PO BID PRN PRN Reason: Anxiety Stop: 10/12/17 11:27 Last Admin: 10/07/17 20:31 Dose: 0.25 mg Enoxaparin Sodium (Lovenox) 40 mg SC DAILY [facility] Last Admin: 10/08/17 09:31 Dose: Not Given Hydromorphone HCl (Dilaudid) 1 mg IVP Q4H PRN PRN Reason: Pain, severe (8-10) Last Admin: 10/08/17 14:10 Dose: 1 mg Vancomycin/Sodium Chloride (Vancomycin 1 Gm/Ns 200 Ml) 1 gm in 200 mls @ 166.7 mls/hr IVPB Q12 DYLLAN PRN Reason: Protocol Stop: 10/09/17 22:01 Last Admin: 10/08/17 09:31 Dose: 166.7 mls/hr Ondansetron HCl (Zofran Inj) 4 mg IVP Q8H PRN PRN Reason: Nausea/Vomiting Last Admin: 10/08/17 07:46 Dose: 4 mg Pantoprazole Sodium (Protonix Ec Tab) 40 mg PO DAILY [facility] Last Admin: 10/08/17 09:30 Dose: 40 mg Valacyclovir HCl (Valtrex) 1,000 mg PO TID D[facility]LLAN PRN Reason: Protocol Stop: 10/15/17 14:01 Last Admin: 10/08/17 14:06 Dose: Not Given - Labs Labs: 10/08/17 07:22 10/08/17 07:22 - Constitutional Appears: Well - Eye Exam Eye Exam: Normal appearance - ENT Exam ENT Exam: Mucous Membranes Moist - Respiratory Exam Respiratory Exam: NORMAL BREATHING PATTERN - Cardiovascular Exam Cardiovascular Exam: RRR - GI/Abdominal Exam GI & Abdominal Exam: Soft. absent: Distended, Guarding, Tenderness - Extremities Exam Additional comments: L hand swelling and erythema markedly improved, full range of motion of all fingers and the hand - Neurological Exam Neurological Exam: Alert, Awake, Oriented x3 - Skin Skin Exam: Dry, Warm Assessment and Plan - Assessment and Plan (Free Text) Assessment: 37F with Left hand cellulitis; improving. Now with elevated LFTs, r/o cholecystitis/choledocholithiasis Plan: - cont ABX - US showed CBD 1.2cm but no stones in the GB or CBD, no wall thickening - will f/u MRCP ordered by GI - cont to monitor LFTs - d/w Dr. Calzada wo agrees with above Jenny, PGY-3 <Chu Calzada - Last Filed: 10/08/17 21:31> Objective - Vital Signs/Intake and Output Vital Signs (last 24 hours): Temp Pulse Resp BP Pulse Ox 99.5 F 95 H 20 111/67 97 10/08/17 15:15 10/08/17 15:15 10/08/17 15:15 10/08/17 15:15 10/08/17 15:15 Intake and Output: 10/08/17 10/09/17 18:59 06:59 Intake Total 1120 Balance 1120 - Medications Medications: Current Medications Acetaminophen (Tylenol 325mg Tab) 650 mg PO Q6 PRN PRN Reason: Pain, Mild (1-3) Last Admin: 10/07/17 18:42 Dose: 650 mg Alprazolam (Xanax) 0.25 mg PO BID PRN PRN Reason: Anxiety Stop: 10/12/17 11:27 Last Admin: 10/08/17 16:43 Dose: 0.25 mg Diphenhydramine HCl (Benadryl) 25 mg PO Q6 PRN PRN Reason: Allergy symptoms Enoxaparin Sodium (Lovenox) 40 mg SC DAILY [facility] Last Admin: 10/08/17 09:31 Dose: Not Given Hydromorphone HCl (Dilaudid) 1 mg IVP Q4H PRN PRN Reason: Pain, severe (8-10) Last Admin: 10/08/17 18:41 Dose: 1 mg Vancomycin/Sodium Chloride (Vancomycin 1 Gm/Ns 200 Ml) 1 gm in 200 mls @ 166.7 mls/hr IVPB Q12 DYLLAN PRN Reason: Protocol Stop: 10/09/17 22:01 Last Admin: 10/08/17 20:59 Dose: 166.7 mls/hr Ondansetron HCl (Zofran Inj) 4 mg IVP Q8H PRN PRN Reason: Nausea/Vomiting Last Admin: 10/08/17 07:46 Dose: 4 mg Pantoprazole Sodium (Protonix Ec Tab) 40 mg PO DAILY [facility] Last Admin: 10/08/17 09:30 Dose: 40 mg Valacyclovir HCl (Valtrex) 1,000 mg PO TID DYLLAN PRN Reason: Protocol Stop: 10/15/17 14:01 Last Admin: 10/08/17 17:31 Dose: Not Given - Labs Labs: 10/08/17 07:22 10/08/17 07:22 Attending/Attestation - Attestation I have personally seen and examined this patient.: Yes I have fully participated in the care of the patient.: Yes I have reviewed all pertinent clinical information, including history, physical exam and plan: Yes Notes (Text): Pt was seen and examined at bedside Agree with above note and assessment Left hand pain is improving Now c/o upper abdominal pain and vomiting US of abdomen C/w IV antibiotics c.w current mx Plan d.w pt in detail Risk and benefit explained in detail.
--- NOTE | 2017-10-08 17:45 | CP.PCM.PN ---
Subjective - Date & Time of Evaluation Date of Evaluation: 10/08/17 Time of Evaluation: 13:20 - Subjective Subjective: Hand Surgery Progress note. Dr. Luna Pt seen and examined at bedside. Still reports some chills. Reports epigastric pain and vomiting last night. States that left arm swelling has been improving and she has been placing ice to the affected area. Does report Tmax of 99.9F overnight. Also reports a rash to the posterior neck which has improved after benadryl. Objective - Vital Signs/Intake and Output Vital Signs (last 24 hours): Temp Pulse Resp BP Pulse Ox 99.9 F H 68 20 131/86 99 10/08/17 07:38 10/08/17 07:38 10/08/17 07:38 10/08/17 07:38 10/08/17 07:38 Intake and Output: 10/08/17 10/08/17 06:59 18:59 Intake Total 700 1120 Balance 700 1120 - Medications Medications: Current Medications Acetaminophen (Tylenol 325mg Tab) 650 mg PO Q6 PRN PRN Reason: Pain, Mild (1-3) Last Admin: 10/07/17 18:42 Dose: 650 mg Alprazolam (Xanax) 0.25 mg PO BID PRN PRN Reason: Anxiety Stop: 10/12/17 11:27 Last Admin: 10/08/17 16:43 Dose: 0.25 mg Diphenhydramine HCl (Benadryl) 25 mg PO Q6 PRN PRN Reason: Allergy symptoms Enoxaparin Sodium (Lovenox) 40 mg SC DAILY [facility] Last Admin: 10/08/17 09:31 Dose: Not Given Hydromorphone HCl (Dilaudid) 1 mg IVP Q4H PRN PRN Reason: Pain, severe (8-10) Last Admin: 10/08/17 14:10 Dose: 1 mg Vancomycin/Sodium Chloride (Vancomycin 1 Gm/Ns 200 Ml) 1 gm in 200 mls @ 166.7 mls/hr IVPB Q12 DYLLAN PRN Reason: Protocol Stop: 10/09/17 22:01 Last Admin: 10/08/17 09:31 Dose: 166.7 mls/hr Ondansetron HCl (Zofran Inj) 4 mg IVP Q8H PRN PRN Reason: Nausea/Vomiting Last Admin: 10/08/17 07:46 Dose: 4 mg Pantoprazole Sodium (Protonix Ec Tab) 40 mg PO DAILY [facility] Last Admin: 10/08/17 09:30 Dose: 40 mg Valacyclovir HCl (Valtrex) 1,000 mg PO TID DYLLAN PRN Reason: Protocol Stop: 10/15/17 14:01 Last Admin: 10/08/17 17:31 Dose: Not Given - Labs Labs: 10/08/17 07:22 10/08/17 07:22 - Constitutional Appears: Non-toxic, No Acute Distress - Head Exam Head Exam: ATRAUMATIC, NORMAL INSPECTION, NORMOCEPHALIC - Eye Exam Eye Exam: EOMI, Normal appearance - ENT Exam ENT Exam: Mucous Membranes Moist - Respiratory Exam Respiratory Exam: NORMAL BREATHING PATTERN. absent: Accessory Muscle Use, Respiratory Distress - Cardiovascular Exam Cardiovascular Exam: RRR. absent: JVD - GI/Abdominal Exam GI & Abdominal Exam: Soft. absent: Distended, Guarding, Rigid, Tenderness, Rebound - Extremities Exam Additional comments: Left hand swelling improved significantly. pulses intact. paper cone machine tender to palpation. No signs of flexor tenosynovitis, no fusiform swelling of the fingers noted. - Neurological Exam Neurological Exam: Alert, Awake, Oriented x3 - Psychiatric Exam Psychiatric exam: Normal Affect, Normal Mood Assessment and Plan - Assessment and Plan (Free Text) Assessment: 37yo F with left hand cellulitis. - elevated LFTs noted. Plan: - continue abx as per ID - f/u repeat Blood cxs - work up for LFTs and GI symptoms as per Primary team - left hand markedly improved. No signs to indicate flexor tenosynovitis. - No indication for hand surgery intervention at this time Further recs as per Dr. Jeremy Chappell PGY1 surgery pager: [phone]
--- NOTE | 2017-10-08 18:27 | CP.PCM.PN ---
Subjective - Date & Time of Evaluation Date of Evaluation: 10/08/17 Time of Evaluation: 07:20 - Subjective Subjective: clinically same Objective - Vital Signs/Intake and Output Vital Signs (last 24 hours): Temp Pulse Resp BP Pulse Ox 99.5 F 95 H 20 111/67 97 10/08/17 15:15 10/08/17 15:15 10/08/17 15:15 10/08/17 15:15 10/08/17 15:15 Intake and Output: 10/08/17 10/08/17 06:59 18:59 Intake Total 700 1120 Balance 700 1120 - Medications Medications: Current Medications Acetaminophen (Tylenol 325mg Tab) 650 mg PO Q6 PRN PRN Reason: Pain, Mild (1-3) Last Admin: 10/07/17 18:42 Dose: 650 mg Alprazolam (Xanax) 0.25 mg PO BID PRN PRN Reason: Anxiety Stop: 10/12/17 11:27 Last Admin: 10/08/17 16:43 Dose: 0.25 mg Diphenhydramine HCl (Benadryl) 25 mg PO Q6 PRN PRN Reason: Allergy symptoms Enoxaparin Sodium (Lovenox) 40 mg SC DAILY [facility] Last Admin: 10/08/17 09:31 Dose: Not Given Hydromorphone HCl (Dilaudid) 1 mg IVP Q4H PRN PRN Reason: Pain, severe (8-10) Last Admin: 10/08/17 14:10 Dose: 1 mg Vancomycin/Sodium Chloride (Vancomycin 1 Gm/Ns 200 Ml) 1 gm in 200 mls @ 166.7 mls/hr IVPB Q12 DYLLAN PRN Reason: Protocol Stop: 10/09/17 22:01 Last Admin: 10/08/17 09:31 Dose: 166.7 mls/hr Ondansetron HCl (Zofran Inj) 4 mg IVP Q8H PRN PRN Reason: Nausea/Vomiting Last Admin: 10/08/17 07:46 Dose: 4 mg Pantoprazole Sodium (Protonix Ec Tab) 40 mg PO DAILY [facility] Last Admin: 10/08/17 09:30 Dose: 40 mg Valacyclovir HCl (Valtrex) 1,000 mg PO TID DYLLAN PRN Reason: Protocol Stop: 10/15/17 14:01 Last Admin: 10/08/17 17:31 Dose: Not Given - Labs Labs: 10/08/17 07:22 10/08/17 07:22 - Constitutional Appears: Well - Head Exam Head Exam: ATRAUMATIC, NORMAL INSPECTION, NORMOCEPHALIC - Eye Exam Eye Exam: EOMI, Normal appearance, PERRL Pupil Exam: NORMAL ACCOMODATION, PERRL - ENT Exam ENT Exam: Mucous Membranes Moist, Normal Exam - Neck Exam Neck Exam: Full ROM, Normal Inspection. absent: Lymphadenopathy - Respiratory Exam Respiratory Exam: Decreased Breath Sounds - Cardiovascular Exam Cardiovascular Exam: REGULAR RHYTHM, +S1, +S2 - GI/Abdominal Exam GI & Abdominal Exam: Soft, Diminished Bowel Sounds - Rectal Exam Rectal Exam: Deferred
[2017-10-09] MEDS: HYDROmorphone 1 mg/ml ISec IVP PRN ×3 (00:52→10:08)
--- NOTE | 2017-10-09 07:30 | CP.PCM.CON ---
<Darryn Louis - Last Filed: 10/09/17 08:37> History of Present Illness - History of Present Illness History of Present Illness: PGY4 Initial GI consult Jessica Guerra is a 37F w/ hx of gastritis, HTN, HL who presented to the ER for evaluation of left hand swelling and erythema for 3 days. She was diagnosed with left hand cellulites and started initially on cipro and vanco. She also received a x1 dose of doxycycline. She initially had normal LFTs on admission. On 10/07 her LFTs increased to ALT:305 AST: 243 . An Abd ultrasound revealed a dilated CBD of 1.2cm. She notes having some RUQ pain, but states that her pain has been chronic for many years. She has had a colonoscopy in [address] Augustin and found to only have internal hemorrhoids. She tolerated her diet without and symptoms. Pt does take nutritional weightloss supplement. Denies any illicit drug use. She states that she only has 1-2 alcoholic beverages weekly. PMHx: Anxiety, Asthma, Hx of DVT due trauma, Gastritis, Uterine Fibroids PSHx: adhesion lysis in 2016, C Section x3, Tonsillectomy, Appendectomy, L Foot Sx, Right neck mass excision (benign), Bilat Breast reduction Social Hx: Current Tobacco use, Social ETOH use, Denies any illicit drugs Allergy: PCN, Iodine Endo hx: colonoscopy 2015: normal ROS: 12-point ROS conducted neg other than above Past Patient History - Infectious Disease Hx of Infectious Diseases: None - Past Medical History & Family History Past Medical History?: Yes - Past Social History Smoking Status: Never Smoked - CARDIAC Hx Cardiac Disorders: Yes Hx Hypercholesterolemia: Yes Hx Hypertension: Yes - PULMONARY Hx Respiratory Disorders: Yes Hx Asthma: Yes - NEUROLOGICAL Hx Neurological Disorder: No - HEENT Hx HEENT Problems: Yes Other/Comment: wears corrective lenses for reading - RENAL Hx Chronic Kidney Disease: No - ENDOCRINE/METABOLIC Hx Endocrine Disorders: No - HEMATOLOGICAL/ONCOLOGICAL Hx Blood Disorders: No Hx Human Immunodeficiency Virus (HIV): No - INTEGUMENTARY Hx Dermatological Problems: No - MUSCULOSKELETAL/RHEUMATOLOGICAL Hx Falls: No - GASTROINTESTINAL Hx Gastrointestinal Disorders: Yes Hx Gastritis: Yes - GENITOURINARY/GYNECOLOGICAL Hx Genitourinary Disorders: No - PSYCHIATRIC Hx Substance Use: No - SURGICAL HISTORY Hx Surgeries: Yes Hx Appendectomy: Yes Hx Tonsillectomy: Yes Other/Comment: C/S - ANESTHESIA Hx Anesthesia: Yes Hx Anesthesia Reactions: No Hx Malignant Hyperthermia: No Meds Allergies/Adverse Reactions: Allergies Allergy/AdvReac Type Severity Reaction Status Date / Time Penicillins Allergy Mild RASH Verified 10/04/17 09:09 iodine AdvReac Mild RASH Verified 10/04/17 09:09 - Medications Medications: Current Medications Acetaminophen (Tylenol 325mg Tab) 650 mg PO Q6 PRN PRN Reason: Pain, Mild (1-3) Last Admin: 10/07/17 18:42 Dose: 650 mg Alprazolam (Xanax) 0.25 mg PO BID PRN PRN Reason: Anxiety Stop: 10/12/17 11:27 Last Admin: 10/09/17 07:20 Dose: 0.25 mg Diphenhydramine HCl (Benadryl) 25 mg PO Q6 PRN PRN Reason: Allergy symptoms Enoxaparin Sodium (Lovenox) 40 mg SC DAILY [facility] Last Admin: 10/08/17 09:31 Dose: Not Given Hydromorphone HCl (Dilaudid) 1 mg IVP Q4H PRN PRN Reason: Pain, severe (8-10) Last Admin: 10/09/17 05:36 Dose: 1 mg Vancomycin/Sodium Chloride (Vancomycin 1 Gm/Ns 200 Ml) 1 gm in 200 mls @ 166.7 mls/hr IVPB Q12 DYLLAN PRN Reason: Protocol Stop: 10/09/17 22:01 Last Admin: 10/08/17 20:59 Dose: 166.7 mls/hr Ondansetron HCl (Zofran Inj) 4 mg IVP Q8H PRN PRN Reason: Nausea/Vomiting Last Admin: 10/08/17 07:46 Dose: 4 mg Pantoprazole Sodium (Protonix Ec Tab) 40 mg PO DAILY [facility] Last Admin: 10/08/17 09:30 Dose: 40 mg Polyethylene Glycol (Miralax) 17 gm PO BID [facility] Valacyclovir HCl (Valtrex) 1,000 mg PO TID DYLLAN PRN Reason: Protocol Stop: 10/15/17 14:01 Last Admin: 10/08/17 17:31 Dose: Not Given Physical Exam - Constitutional Appears: No Acute Distress - Head Exam Head Exam: ATRAUMATIC, NORMOCEPHALIC - Eye Exam Eye Exam: EOMI, Normal appearance - ENT Exam ENT Exam: Mucous Membranes Moist, Normal Exam - Neck Exam Neck exam: Positive for: Normal Inspection - Respiratory Exam Respiratory Exam: Clear to Auscultation Bilateral, NORMAL BREATHING PATTERN. absent: Rales, Rhonchi, Wheezes, Respiratory Distress - Cardiovascular Exam Cardiovascular Exam: REGULAR RHYTHM, +S1, +S2 - GI/Abdominal Exam GI & Abdominal Exam: Normal Bowel Sounds, Soft. absent: Distended, Rebound, Rigid, Tenderness - Neurological Exam Neurological exam: Alert, Oriented x3 - Psychiatric Exam Psychiatric exam: Normal Affect, Normal Mood - Skin Skin Exam: Dry, Intact, Normal Color, Warm Results - Vital Signs Recent Vital Signs: Last Vital Signs Temp 98.5 F 10/09/17 00:00 Pulse 106 H 10/09/17 00:00 Resp 20 10/09/17 00:00 BP 119/72 10/09/17 00:00 Pulse Ox 94 L 10/09/17 00:00 - Labs Result Diagrams: 10/08/17 07:22 10/08/17 07:22 Labs: Laboratory Results - last 24 hr 10/08/17 10/08/17 10/08/17 07:22 07:22 12:56 WBC 4.8 RBC 4.37 Hgb 13.2 Hct 38.4 MCV 87.7 MCH 30.2 MCHC 34.4 RDW 13.1 Plt Count 264 MPV 8.6 Neut % (Auto) 58.1 Lymph % (Auto) 29.9 Zavala % (Auto) 8.2 Eos % (Auto) 3.4 Baso % (Auto) 0.4 Neut # (Auto) 2.8 Lymph # (Auto) 1.4 Zavala # (Auto) 0.4 Eos # (Auto) 0.2 Baso # (Auto) 0.0 Sodium 139 Potassium 4.0 Chloride 102 Carbon Dioxide 24 Anion Gap 18 BUN 10 Creatinine 0.8 Est GFR ( Amer) > 60 Est GFR (Non-Af Amer) > 60 Random Glucose 109 H Calcium 8.7 Total Bilirubin 0.4 AST 243 H D ALT 305 H D Alkaline Phosphatase 145 H D Total Protein 6.8 Albumin 3.7 Globulin 3.2 Albumin/Globulin Ratio 1.2 Hepatitis A IgM Ab Negative Hep Bs Antigen Negative Hep B Core IgM Ab Negative Hepatitis C Antibody Negative Assessment & Plan - Assessment and Plan (Free Text) Assessment: Jessica Narina is a 37F w/ hx of chronic abd pain, HTN, Hl who presents to the ER with left hand cellulitis. CBD was found to be dilated at 1.2cm and LFTs elevated Elevated LFTS, etiology: drug induced?; r/o viral hepatitis, autoimmune Dilated CBD, r/o stone Abd pain Constipation Plan: -will get an MRCP -will check viral serology -r/u autoimmune -currently only on vancomycin, likely not etiology if DILI, previously did get doxycycline -if CBD stone present, will setup for ERCP -pain management as per primary team -continue vanco -will start on miralax BID and fleet enema D/W Dr. Davison <Suman Davison - Last Filed: 10/09/17 13:05> Meds - Medications Medications: Current Medications Acetaminophen (Tylenol 325mg Tab) 650 mg PO Q6 PRN PRN Reason: Pain, Mild (1-3) Last Admin: 10/07/17 18:42 Dose: 650 mg Alprazolam (Xanax) 0.25 mg PO BID PRN PRN Reason: Anxiety Stop: 10/12/17 11:27 Last Admin: 10/09/17 07:20 Dose: 0.25 mg Diphenhydramine HCl (Benadryl) 25 mg PO Q6 PRN PRN Reason: Allergy symptoms Enoxaparin Sodium (Lovenox) 40 mg SC DAILY [facility] Last Admin: 10/09/17 10:05 Dose: Not Given Hydromorphone HCl (Dilaudid) 1 mg IVP Q4H PRN PRN Reason: Pain, severe (8-10) Last Admin: 10/09/17 10:08 Dose: 1 mg Vancomycin/Sodium Chloride (Vancomycin 1 Gm/Ns 200 Ml) 1 gm in 200 mls @ 166.7 mls/hr IVPB Q12 DYLLAN PRN Reason: Protocol Stop: 10/09/17 22:01 Last Admin: 10/09/17 12:30 Dose: 166.7 mls/hr Ondansetron HCl (Zofran Inj) 4 mg IVP Q8H PRN PRN Reason: Nausea/Vomiting Last Admin: 10/08/17 07:46 Dose: 4 mg Pantoprazole Sodium (Protonix Ec Tab) 40 mg PO DAILY [facility] Last Admin: 10/09/17 10:04 Dose: 40 mg Polyethylene Glycol (Miralax) 17 gm PO BID [facility] Last Admin: 10/09/17 10:04 Dose: 17 gm Results - Vital Signs Recent Vital Signs: Last Vital Signs Temp 98 F 10/09/17 08:31 Pulse 65 10/09/17 08:31 Resp 20 10/09/17 08:31 BP 117/75 10/09/17 08:31 Pulse Ox 96 10/09/17 08:31 - Labs Result Diagrams: 10/09/17 11:34 10/09/17 11:35 Labs: Laboratory Results - last 24 hr 10/06/17 10/08/17 10/09/17 06:35 12:56 11:27 WBC RBC Hgb Hct MCV MCH MCHC RDW Plt Count MPV Neut % (Auto) Lymph % (Auto) Zavala % (Auto) Eos % (Auto) Baso % (Auto) Neut # (Auto) Lymph # (Auto) Zavala # (Auto) Eos # (Auto) Baso # (Auto) Sodium Potassium Chloride Carbon Dioxide Anion Gap BUN Creatinine Est GFR ( Amer) Est GFR (Non-Af Amer) Random Glucose Hemoglobin A1c Calcium Total Bilirubin AST ALT Alkaline Phosphatase Total Protein Albumin Globulin Albumin/Globulin Ratio Vancomycin Trough IgG Rheumatoid Factor IgA <5 Rheumatoid Factor IgM <5 Hepatitis A IgM Ab Negative Hep Bs Antigen Negative Hep B Core IgM Ab Negative Negative Hepatitis C Antibody Negative 10/09/17 10/09/17 10/09/17 11:27 11:33 11:34 WBC 16.5 H D RBC 4.72 Hgb 13.9 Hct 41.4 MCV 87.8 MCH 29.4 MCHC 33.5 RDW 13.2 Plt Count 300 MPV 8.5 Neut % (Auto) 77.9 H Lymph % (Auto) 13.9 L Zavala % (Auto) 6.9 Eos % (Auto) 0.5 Baso % (Auto) 0.8 Neut # (Auto) 12.8 H Lymph # (Auto) 2.3 Zavala # (Auto) 1.1 H Eos # (Auto) 0.1 Baso # (Auto) 0.1 Sodium Potassium Chloride Carbon Dioxide Anion Gap BUN Creatinine Est GFR ( Amer) Est GFR (Non-Af Amer) Random Glucose Hemoglobin A1c Calcium Total Bilirubin AST ALT Alkaline Phosphatase Total Protein Albumin Globulin Albumin/Globulin Ratio Vancomycin Trough 6.7 IgG 1059.9 Rheumatoid Factor IgA Rheumatoid Factor IgM Hepatitis A IgM Ab Hep Bs Antigen Hep B Core IgM Ab Hepatitis C Antibody 10/09/17 10/09/17 11:35 11:38 WBC RBC Hgb Hct MCV MCH MCHC RDW Plt Count MPV Neut % (Auto) Lymph % (Auto) Zavala % (Auto) Eos % (Auto) Baso % (Auto) Neut # (Auto) Lymph # (Auto) Zavala # (Auto) Eos # (Auto) Baso # (Auto) Sodium 139 Potassium 4.0 Chloride 105 Carbon Dioxide 20 L Anion Gap 18 BUN 14 Creatinine 0.7 Est GFR ( Amer) > 60 Est GFR (Non-Af Amer) > 60 Random Glucose 100 Hemoglobin A1c 5.7 Calcium 9.2 Total Bilirubin 0.4 AST 66 H D ALT 196 H D Alkaline Phosphatase 130 H Total Protein 7.4 Albumin 4.0 Globulin 3.4 Albumin/Globulin Ratio 1.1 Vancomycin Trough IgG Rheumatoid Factor IgA Rheumatoid Factor IgM Hepatitis A IgM Ab Hep Bs Antigen Hep B Core IgM Ab Hepatitis C Antibody Attending/Attestation - Attestation I have personally seen and examined this patient.: Yes I have fully participated in the care of the patient.: Yes I have reviewed all pertinent clinical information: Yes Notes (Text): 10/09/17 12:59 I have seen and examined patient with GI fellow. Agree with above documentation with the following additions. In brief, this is a 37 year old female with history of HTN, hyperlipidemia who initially presented to hospital with complaint of left hand swelling and pain, currently being treated for cellulitis. GI called for evaluation of elevated LFTs. She describes having intermittent abdominal pain located in epigastric and RUQ region over the past several months which does not seem to be related to food consumption. She denies nausea, vomiting, fever/chills, weight loss, jaundice, pruritis, excessive ETOH use, or prior knowledge of liver disease. On arrival to hospital , LFTs were initially normal. She had a colonoscopy in 2014 which showed internal hemorrhoids, no prior EGD. Family history: reviewed, patient denies GI malignancies Additional physical examination: Abdomen: no palpable hepato/splenomegaly HTN Hyperlipidemia L hand cellulitis Transaminitis of unclear etiology - biliary obstruction vs DILI Abdominal US reviewed by me showing dilated CBD - Diet as tolerated - Continue with antibiotic therapy, currently on vancomycin (unlikely cause of elevated LFTs) - Obtain viral hepatitis and autoimmune serologies - Obtain MRCP given dilated CBD visualized on US - Continue to monitor LFTs, avoid hepatotoxic therapies - Will continue to monitor patient clinical course
[2017-10-09 08:33] VITALS: BP 117/75; PULSE 65; TEMP 98; O2SAT 96
[2017-10-09] MEDS ORDERED: POLYETHYLENE GLYCOL 3350 17 GM/Dose PACKET PO SCH (10:00)
[2017-10-09] MEDS: Pantoprazole 40 mg EC Tab PO SCH (10:04)
[2017-10-09] MEDS: Enoxaparin 40 mg Syringe SC SCH (10:05)
--- NOTE | 2017-10-09 10:44 | CP.PCM.PN ---
Subjective - Date & Time of Evaluation Date of Evaluation: 10/09/17 Time of Evaluation: 09:00 - Subjective Subjective: PGY-[address] Louis Patient seen and examined at bedside. Patient complains of cramping abdominal pain overnight. Patient was evaluated by GI team and agreed to MRCP today. Patient denies fever, chills, shortness of breath, chest pain nausea or vomiting. 10/09/2017 15:15 Patient states that she has an emergency at home that she would like to sign out against medical advise. Risks associated with signing out AMA were thoroughly explained to the patient. Patient understood and insisted on AMA. Attending physician Dr. Louis notified. Objective - Vital Signs/Intake and Output Vital Signs (last 24 hours): Temp Pulse Resp BP Pulse Ox 98 F 65 20 117/75 96 10/09/17 08:31 10/09/17 08:31 10/09/17 08:31 10/09/17 08:31 10/09/17 08:31 Intake and Output: 10/09/17 10/09/17 06:59 18:59 Intake Total 650 0 Balance 650 0 - Medications Medications: Current Medications Acetaminophen (Tylenol 325mg Tab) 650 mg PO Q6 PRN PRN Reason: Pain, Mild (1-3) Last Admin: 10/07/17 18:42 Dose: 650 mg Alprazolam (Xanax) 0.25 mg PO BID PRN PRN Reason: Anxiety Stop: 10/12/17 11:27 Last Admin: 10/09/17 07:20 Dose: 0.25 mg Diphenhydramine HCl (Benadryl) 25 mg PO Q6 PRN PRN Reason: Allergy symptoms Enoxaparin Sodium (Lovenox) 40 mg SC DAILY [facility] Last Admin: 10/09/17 10:05 Dose: Not Given Hydromorphone HCl (Dilaudid) 1 mg IVP Q4H PRN PRN Reason: Pain, severe (8-10) Last Admin: 10/09/17 10:08 Dose: 1 mg Vancomycin/Sodium Chloride (Vancomycin 1 Gm/Ns 200 Ml) 1 gm in 200 mls @ 166.7 mls/hr IVPB Q12 DYLLAN PRN Reason: Protocol Stop: 10/09/17 22:01 Last Admin: 10/08/17 20:59 Dose: 166.7 mls/hr Ondansetron HCl (Zofran Inj) 4 mg IVP Q8H PRN PRN Reason: Nausea/Vomiting Last Admin: 10/08/17 07:46 Dose: 4 mg Pantoprazole Sodium (Protonix Ec Tab) 40 mg PO DAILY [facility] Last Admin: 10/09/17 10:04 Dose: 40 mg Polyethylene Glycol (Miralax) 17 gm PO BID [facility] Last Admin: 10/09/17 10:04 Dose: 17 gm - Labs Labs: 10/08/17 07:22 10/08/17 07:22 - Constitutional Appears: Non-toxic, No Acute Distress - Head Exam Head Exam: ATRAUMATIC - Eye Exam Eye Exam: EOMI - ENT Exam ENT Exam: Mucous Membranes Moist - Respiratory Exam Respiratory Exam: Clear to Ausculation Bilateral, NORMAL BREATHING PATTERN - Cardiovascular Exam Cardiovascular Exam: REGULAR RHYTHM, +S1, +S2. absent: Murmur - GI/Abdominal Exam GI & Abdominal Exam: Soft - Psychiatric Exam Psychiatric exam: Normal Affect - Skin Additional comments: erythema on left hand is receding. swelling is reduced. Vesicular rash on left side of neck. Assessment and Plan - Assessment and Plan (Free Text) Assessment: Patient signed out AMA. Risks associated with signing out AMA were thoroughly explained to the patient. Patient understood and insisted on AMA. Attending physician Dr. Louis notified. Levaquin script was given to the patient and recommend to follow up with Dr. Louis and Dr. Unique HILL as outpatient. All management as per Dr. Louis.
[2017-10-09 11:41] LABS: BASO # 0.1 K/uL (0.0-0.2); BASO % 0.8 % (0.0-2.0); EOS # 0.1 K/uL (0.0-0.7); EOS % 0.5 % (0.0-4.0); HEMOGLOBIN 13.9 g/dL (11.0-16.0); LYMPH # 2.3 K/uL (1.0-4.3); LYMPH % 13.9 % (20.0-40.0); MEAN CELL VOLUME 87.8 fL (81.0-99.0); MEAN CORPUSCULAR HEMOGLOBIN 29.4 pg (27.0-31.0); MEAN CORPUSCULAR HGB CONC 33.5 g/dL (33.0-37.0); MEAN PLATELET VOLUME 8.5 fL (7.2-11.7); MONO # 1.1 K/uL (0.0-0.8); MONO % 6.9 % (0.0-10.0); NEUT # 12.8 K/uL (1.8-7.0); NEUT % 77.9 % (50.0-75.0); RBC 4.72 Mil/uL (3.80-5.20); RED CELL DISTRIBUTION WIDTH 13.2 % (11.5-14.5); WHITE BLOOD COUNT 16.5 K/uL (4.8-10.8)
[2017-10-09 12:08] LABS: ALB/GLOB RATIO 1.1 (1.0-2.1); ALT/SGPT 196 U/L (9-52); AST/SGOT 66 U/L (14-36); BLOOD UREA NITROGEN 14 mg/dL (7-17); CALCIUM 9.2 mg/dl (8.6-10.4); GFR AFRICAN-AMERICAN > 60; GFR NON-AFRICAN AMERICAN > 60
[2017-10-09] MEDS: Vancomycin 1 gm/NS 200 ml 1 GM/200 ML BAG IVPB SCH (12:30)
--- NOTE | 2017-10-09 13:15 | MRI ---
MRCP Indication: Transaminitis, dilated CBD on ultrasound Technique: Multiplanar, multisequence MR images of the abdomen were obtained, including heavily T2 weighted MRCP images of the biliary system. Rotating maximum intensity projection images of the biliary system were generated. A total of 596 images were submitted for review. Comparison: None available Findings: Examination limited by motion. Hepatic steatosis. The gallbladder appears unremarkable. There is no intrahepatic biliary ductal dilatation. The common bile duct appears dilated measuring approximately 11 mm in diameter. The common bile duct tapers distally. The pancreatic duct appears within normal limits of caliber. No filling defects are seen in the common bile duct or pancreatic duct. The imaged portions of the noncontrast adrenal glands, kidneys, spleen, and pancreas appear unremarkable. No bulky abdominal lymphadenopathy is seen. No ascites. No acute osseous abnormality is detected. Impression: Dilated common bile duct without discrete filling defect identified. Hepatic steatosis.
--- NOTE | 2017-10-09 14:32 | CP.PCM.PN ---
Subjective - Date & Time of Evaluation Date of Evaluation: 10/09/17 Time of Evaluation: 08:00 - Subjective Subjective: Surgery: Dr. Calzada Pt seen and examined. No acute overnight events. States her hand is feeling better but she has some abdominal discomfort. Denies N/V. Objective - Vital Signs/Intake and Output Vital Signs (last 24 hours): Temp Pulse Resp BP Pulse Ox 98 F 65 20 117/75 96 10/09/17 08:31 10/09/17 08:31 10/09/17 08:31 10/09/17 08:31 10/09/17 08:31 Intake and Output: 10/09/17 10/09/17 06:59 18:59 Intake Total 650 0 Balance 650 0 - Medications Medications: Current Medications Acetaminophen (Tylenol 325mg Tab) 650 mg PO Q6 PRN PRN Reason: Pain, Mild (1-3) Last Admin: 10/07/17 18:42 Dose: 650 mg Alprazolam (Xanax) 0.25 mg PO BID PRN PRN Reason: Anxiety Stop: 10/12/17 11:27 Last Admin: 10/09/17 07:20 Dose: 0.25 mg Diphenhydramine HCl (Benadryl) 25 mg PO Q6 PRN PRN Reason: Allergy symptoms Enoxaparin Sodium (Lovenox) 40 mg SC DAILY [facility] Last Admin: 10/09/17 10:05 Dose: Not Given Hydromorphone HCl (Dilaudid) 1 mg IVP Q4H PRN PRN Reason: Pain, severe (8-10) Last Admin: 10/09/17 10:08 Dose: 1 mg Vancomycin/Sodium Chloride (Vancomycin 1 Gm/Ns 200 Ml) 1 gm in 200 mls @ 166.7 mls/hr IVPB Q12 [facility] PRN Reason: Protocol Stop: 10/09/17 22:01 Last Admin: 10/09/17 12:30 Dose: 166.7 mls/hr Ondansetron HCl (Zofran Inj) 4 mg IVP Q8H PRN PRN Reason: Nausea/Vomiting Last Admin: 10/08/17 07:46 Dose: 4 mg Pantoprazole Sodium (Protonix Ec Tab) 40 mg PO DAILY [facility] Last Admin: 10/09/17 10:04 Dose: 40 mg Polyethylene Glycol (Miralax) 17 gm PO BID [facility] Last Admin: 10/09/17 10:04 Dose: 17 gm - Labs Labs: 10/09/17 11:34 10/09/17 11:35 - Constitutional Appears: Well, No Acute Distress - Head Exam Head Exam: ATRAUMATIC, NORMOCEPHALIC - Eye Exam Eye Exam: Normal appearance - ENT Exam ENT Exam: Mucous Membranes Moist - Respiratory Exam Respiratory Exam: NORMAL BREATHING PATTERN - Cardiovascular Exam Cardiovascular Exam: RRR - GI/Abdominal Exam GI & Abdominal Exam: Soft. absent: Distended, Tenderness - Neurological Exam Neurological Exam: Alert, Awake, Oriented x3 - Skin Skin Exam: Dry, Warm Assessment and Plan - Assessment and Plan (Free Text) Assessment: 37F with resolving hand cellulitis Plan: - cont ABX per ID recs - MRCP negative for CBD stones; elevated liver enzymes down trending - no further surgical intervention at this time - d/w Dr. Zheng Alvarado, PGY-3
--- NOTE | 2017-10-09 14:37 | CP.PCM.PN ---
Subjective - Date & Time of Evaluation Date of Evaluation: 10/09/17 Time of Evaluation: 07:20 - Subjective Subjective: clinically same Objective - Vital Signs/Intake and Output Vital Signs (last 24 hours): Temp Pulse Resp BP Pulse Ox 98 F 65 20 117/75 96 10/09/17 08:31 10/09/17 08:31 10/09/17 08:31 10/09/17 08:31 10/09/17 08:31 Intake and Output: 10/09/17 10/09/17 06:59 18:59 Intake Total 650 0 Balance 650 0 - Medications Medications: Current Medications Acetaminophen (Tylenol 325mg Tab) 650 mg PO Q6 PRN PRN Reason: Pain, Mild (1-3) Last Admin: 10/07/17 18:42 Dose: 650 mg Alprazolam (Xanax) 0.25 mg PO BID PRN PRN Reason: Anxiety Stop: 10/12/17 11:27 Last Admin: 10/09/17 07:20 Dose: 0.25 mg Diphenhydramine HCl (Benadryl) 25 mg PO Q6 PRN PRN Reason: Allergy symptoms Enoxaparin Sodium (Lovenox) 40 mg SC DAILY [facility] Last Admin: 10/09/17 10:05 Dose: Not Given Hydromorphone HCl (Dilaudid) 1 mg IVP Q4H PRN PRN Reason: Pain, severe (8-10) Last Admin: 10/09/17 10:08 Dose: 1 mg Vancomycin/Sodium Chloride (Vancomycin 1 Gm/Ns 200 Ml) 1 gm in 200 mls @ 166.7 mls/hr IVPB Q12 [facility] PRN Reason: Protocol Stop: 10/09/17 22:01 Last Admin: 10/09/17 12:30 Dose: 166.7 mls/hr Ondansetron HCl (Zofran Inj) 4 mg IVP Q8H PRN PRN Reason: Nausea/Vomiting Last Admin: 10/08/17 07:46 Dose: 4 mg Pantoprazole Sodium (Protonix Ec Tab) 40 mg PO DAILY [facility] Last Admin: 10/09/17 10:04 Dose: 40 mg Polyethylene Glycol (Miralax) 17 gm PO BID [facility] Last Admin: 10/09/17 10:04 Dose: 17 gm - Labs Labs: 10/09/17 11:34 10/09/17 11:35
[2017-10-10 10:04] LABS: CERULOPLASMIN 34 mg/dL (18-53)
== END 2017-10-09 15:35 | disposition left against medical advice (07) | DRG 277 ==
LOC: C.ER 09:02 → C.9E 10:53 → C.3T 15:28 → OBSVTOIN 10-06 15:05 → C.3T 10-07 20:03
PROVIDERS: ADMIT Internal Medicine Nephrology; ATTEND Internal Medicine Nephrology
DX: L02.512 Cutaneous abscess of left hand (principal); L03.114 Cellulitis of left upper limb; K83.8 Other specified diseases of biliary tract; I89.1 Lymphangitis; I10 Essential (primary) hypertension; K59.00 Constipation, unspecified; J45.909 Unspecified asthma, uncomplicated; E78.5 Hyperlipidemia, unspecified; E78.00 Pure hypercholesterolemia, unspecified; K64.8 Other hemorrhoids; W55.01XA Bitten by cat, initial encounter; Z72.0 Tobacco use; Z86.010 Personal history of colon polyps; Z86.718 Personal history of other venous thrombosis and embolism; Z90.49 Acquired absence of other specified parts of digestive tract

== ENCOUNTER 2018-07-09 08:51 | Emergency (ER) | payer OTHER ==
[2018-07-09 08:51] VITALS: BMI 28.9
[2018-07-09 09:07] VITALS: RESP 18
[2018-07-09] MEDS ORDERED: Sodium Chloride 0.9% 1,000 ML IV ONE (09:47)
--- NOTE | 2018-07-09 09:56 | C.PDOC ---
History Of Present Illness 38 y/o female presents to ED with c/o nausea and vomiting intermittently for 2 weeks. Patient states she has taken multiple home test that were negative. Patient denies fever, chills, abdominal pain, diarrhea, dysuria, sheryl turia, back pain, recent travel or any other complaints at this time. LMP 05/2018 Time Seen by Provider: 07/09/18 09:18 Chief Complaint (Nursing): Abdominal Pain History Per: Patient History/Exam Limitations: no limitations Onset/Duration Of Symptoms: Days Current Symptoms Are (Timing): Still Present Past Medical History Reviewed: Historical Data, Nursing Documentation, Vital Signs Vital Signs: Last Vital Signs Temp 98.7 F 07/09/18 09:03 Pulse 87 07/09/18 09:03 Resp 18 07/09/18 09:03 BP 132/80 07/09/18 09:03 Pulse Ox 96 07/09/18 09:03 - Medical History PMH: Anxiety, Asthma, Colonic Polyps, Gastritis, HTN, Hypercholesterolemia Surgical History: Appendectomy, Tonsillectomy, (x 3) - [facility] Procedures CLOSED ENDOSCOPIC BIOPSY OF LARGE INTESTINE (05/30/14) ESOPHAGOGASTRODUODENOSCOPY [EGD] W/CLOSED BIOPSY (12/11/13) EXCISION OF RIGHT UPPER LEG SKIN, EXTERNAL APPROACH, DIAGN (09/12/15) INJECT/INFUSE NEC (01/26/15) LAPAROSCOP LYSIS-PERITONEAL ADHES (10/14/14) LAPAROTOMY NEC (03/08/13) NEBULIZER THERAPY (02/03/14) OTH LYSIS-PERITONEAL ADHES (03/08/13) RESECTION OF APPENDIX, PERCUTANEOUS ENDOSCOPIC APPROACH (07/08/16) Family History: States: No Known Family Hx - Social History Hx Tobacco Use: Yes (light smoker) Hx Alcohol Use: Yes Hx Substance Use: No - Immunization History Hx Tetanus Toxoid Vaccination: Yes Hx Influenza Vaccination: Yes Hx Pneumococcal Vaccination: No Review Of Systems Constitutional: Negative for: Fever, Chills Gastrointestinal: Positive for: Nausea, Vomiting. Negative for: Abdominal Pain, Diarrhea Genitourinary: Negative for: Dysuria, Hematuria Skin: Negative for: Rash Physical Exam - Physical Exam Appears: Non-toxic, No Acute Distress Skin: Warm, Dry, No Rash Head: Atraumatic, Normacephalic Eye(s): bilateral: Normal Inspection Oral Mucosa: Moist Neck: Normal ROM, Supple Cardiovascular: Rhythm Regular Respiratory: Normal Breath Sounds, No Rales, No Rhonchi, No Wheezing Gastrointestinal/Abdominal: Soft, No Tenderness, No Guarding, No Rebound Back: No CVA Tenderness Extremity: Normal ROM, No Pedal Edema, Capillary Refill (<2 seconds) Neurological/Psych: Oriented x3, Normal Speech, Normal Cognition ED Course And Treatment - Laboratory Results Result Diagrams: 07/09/18 09:58 07/09/18 09:58 O2 Sat by Pulse Oximetry: 96 (RA) Pulse Ox Interpretation: Normal Medical Decision Making Medical Decision Making: Plan: * Blood work * UA * Zofran * IV fluids 1030- Patient re-evaluated, states that her nausea has somewhat improved. No vomiting in the ED. Lab results discussed with patient. She declines CT at this time. Recommended outpatient followup with PMD. Patient amenable to this plan. Will discharge home with Rx for Zofran. Disposition - Disposition Disposition Time: 10:33 Condition: STABLE Instructions: Nausea and Vomiting, Adult (DC) Forms: [facility] ([facility]) - Clinical Impression Clinical Impression: Nausea & vomiting - Scribe Statement The provider has reviewed the documentation as recorded by the [employer] [facility] All medical record entries made by the Scribe were at my direction and personally dictated by me. I have reviewed the chart and agree that the record accurately reflects my personal performance of the history, physical exam, medical decision making, and the department course for this patient. I have also personally directed, reviewed, and agree with the discharge instructions and disposition.
[2018-07-09 10:08] LABS: BASO % 0.3 % (0.0-2.0); EOS # 0.1 K/uL (0.0-0.7); EOS % 1.6 % (0.0-4.0); HEMOGLOBIN 14.6 g/dL (11.0-16.0); LYMPH # 1.7 K/uL (1.0-4.3); LYMPH % 26.7 % (20.0-40.0); MEAN CORPUSCULAR HEMOGLOBIN 30.9 pg (27.0-31.0); MEAN PLATELET VOLUME 8.4 fL (7.2-11.7); MONO # 0.6 K/uL (0.0-0.8); NEUT # 3.8 K/uL (1.8-7.0); NEUT % 61.4 % (50.0-75.0); RBC 4.71 Mil/uL (3.80-5.20); RED CELL DISTRIBUTION WIDTH 13.2 % (11.5-14.5)
[2018-07-09 10:11] LABS: MEAN CELL VOLUME 90.8 fL (81.0-99.0); WHITE BLOOD COUNT 6.2 K/uL (4.8-10.8)
[2018-07-09 10:11] LABS: SQUAMOUS EPITHIAL 14 /hpf (0-5); URINE BACTERIA RARE (<OCC); URINE BILIRUBIN NEGATIVE (NEGATIVE); URINE BLOOD NEGATIVE (NEGATIVE); URINE CLARITY Hazy (Clear); URINE COLOR Yellow (YELLOW); URINE GLUCOSE (UA) NORMAL (Normal); URINE LEUKOCYTE ESTERASE NEG Leu/uL (Negative); URINE PROTEIN NEGATIVE (NEGATIVE); URINE UROBILINOGEN NORMAL mg/dL (0.2-1.0)
[2018-07-09 10:17] LABS: ALB/GLOB RATIO 1.5 (1.0-2.1); ALBUMIN 4.3 g/dL (3.5-5.0); ALT/SGPT 49 U/L (9-52); AST/SGOT 28 U/L (14-36); BLOOD UREA NITROGEN 13 mg/dL (7-17); CALCIUM 9.3 mg/dl (8.6-10.4); GFR NON-AFRICAN AMERICAN > 60; LIPASE 79 U/L (23-300)
[2018-07-09 10:49] VITALS: BP 129/78; PULSE 76; TEMP 97.5; O2SAT 99
== END 2018-07-09 10:50 | disposition home or self-care (01) ==
LOC: C.ER 08:51
DX: R11.2 Nausea with vomiting, unspecified (principal)
CPT/HCPCS: 80053; 81001; 83690; 83735; 84100; 85025; 96361; 96374; 99284; J2405; J7030